=== PATIENT | female | born 1965 | race Caucasian/White ===

== ENCOUNTER → 2024-03-21 06:29 | Day surgery (SDC) | payer MEDICARE, OTHER, SELFPAY | LOC: GI 06:29 | PROVIDERS: ATTENDING PHYSICIAN Internal Medicine Gastroenterology; FAMILY PHYSICIAN Internal Medicine Geriatric Medicine | DX: Z12.11 Encounter for screening for malignant neoplasm of colon (principal); D12.4 Benign neoplasm of descending colon; Q43.8 Other specified congenital malformations of intestine; Z83.719 Family history of colon polyps, unspecified | CPT/HCPCS: 45385; 88305 ==

== ENCOUNTER → 2024-05-20 11:43 | Outpatient (REF) | payer MEDICARE, OTHER, SELFPAY | LOC: RAD 11:43 | PROVIDERS: ATTENDING PHYSICIAN Nurse Practitioner Family; FAMILY PHYSICIAN Internal Medicine Geriatric Medicine | DX: M54.12 Radiculopathy, cervical region (principal); M25.511 Pain in right shoulder | CPT/HCPCS: 72052; 73030 ==

== ENCOUNTER → 2024-08-25 10:11 | Outpatient (REF) | payer MEDICARE, OTHER, SELFPAY | LOC: DHSLP 10:11 | PROVIDERS: ATTENDING PHYSICIAN Internal Medicine Geriatric Medicine | DX: G47.00 Insomnia, unspecified (principal); R09.02 Hypoxemia | CPT/HCPCS: 95810 ==

== ENCOUNTER → 2024-09-29 07:30 | Outpatient (REF) | payer MEDICARE, OTHER, SELFPAY ==
[2024-09-29 09:40] LABS: % Basophils 1.1 % (0-2); % Eosinophils 1.2 % (0-6); % Immature Granulocytes 0.3 % (0-0.5); % Lymphocytes 22.4 % (20.5-51.1); % Monocytes 6.7 % (1.7-9.3); % Neutrophils 68.3 % (42.2-75.2); Absolute Basophils 0.1 10^3/uL (0-0.2); Absolute Eosinophils 0.1 10^3/uL (0-0.7); Absolute Lymphocytes 1.4 10^3/uL (1.2-3.4); Absolute Monocytes 0.4 10^3/uL (0.1-0.6); Absolute Neutrophils 4.4 10^3/uL (1.4-6.5); Hematocrit 46.6 % (37.0-47.0); Hemoglobin 15.5 g/dL (12.0-16.0); Mean Corp Hgb Conc. 33.3 g/dL (33.0-37.0); Mean Corpuscular Hgb 29.1 pg (27.0-31.0); Mean Corpuscular Volume 87.4 fL (81.0-99.0); Nucleated Red Blood Cells % 0 %; Platelet Count 285 10^3/uL (130-400); Red Blood Cell Count 5.33 10^6/uL (4.20-5.40); Red Cell Dist. Width 13.5 % (11.5-14.5); White Blood Cell Count 6.4 10^3/uL (4.8-10.8)
[2024-09-29 10:01] LABS: NT-proBNP 32.8 pg/ml
[2024-09-29 10:37] LABS: Erythrocyte Sed Rate 9 mm/hour (0-20)
[2024-09-29 11:38] LABS: Cortisol, Random 10.1 ug/dl
[2024-09-29 11:54] LABS: Albumin 4.8 g/dl (3.5-5.0); Alkaline Phosphatase 67 U/L (38-126); Blood Urea Nitrogen 18 mg/dl (7-17); Calcium 9.7 mg/dl (8.4-10.2); Carbon Dioxide 27 mmol/L (22-30); Chloride 110 mmol/L (98-107); Glucose 97 mg/dl (70-99); Potassium 4.4 mmol/L (3.5-5.1); Sodium 146 mmol/L (135-145); Total Protein 7.4 g/dl (6.3-8.2); eGFR 58.61
[2024-09-29 11:55] LABS: ALT (SGPT) 29 U/L (0-35); AST (SGOT) 31 U/L (14-36); Creatine Phosphokinase 166 U/L (30-135); Total Bilirubin 0.5 mg/dl (0.2-1.3)
[2024-09-29 15:11] LABS: Prealbumin (Transthyretin) 23.4 mg/dl (17.6-36.0)
[2024-10-02 01:23] LABS: Aldosterone, Serum 15.9 ng/dL; Aldosterone/Renin Activ Ratio 39.8 ratio (<=25.0); Renin Activity Results 0.4 ng/mL/hr
== END ==
LOC: RCS 07:30
PROVIDERS: ATTENDING PHYSICIAN Internal Medicine Geriatric Medicine; REFERRING PHYSICIAN Internal Medicine Critical Care Medicine
DX: E78.2 Mixed hyperlipidemia (principal); M79.10 Myalgia, unspecified site; M54.12 Radiculopathy, cervical region; F32.9 Major depressive disorder, single episode, unspecified; J45.20 Mild intermittent asthma, uncomplicated; K21.9 Gastro-esophageal reflux disease without esophagitis; M19.91 Primary osteoarthritis, unspecified site; Z13.89 Encounter for screening for other disorder; J45.40 Moderate persistent asthma, uncomplicated; R55 Syncope and collapse; J98.4 Other disorders of lung
CPT/HCPCS: 36415; 71046; 80053; 82088; 82533; 82550; 83835; 83880; 84134; 84244; 85025; 85652; 86140; 93225; 93226; 93306

== ENCOUNTER 2024-10-10 09:06 | Emergency (ER) | payer MEDICARE, OTHER, SELFPAY ==
[2024-10-10 09:11] VITALS: BP 123/100
--- NOTE | 2024-10-10 09:31 | ED.GENMED ---
History of Present Illness
General
Chief Complaint: Cold/Flu/URI Symptoms
Source: patient
Exam Limitations: none
Time Seen by Provider: 10/10/24 09:19
History of Present Illness
History of Present Illness:
Patient is a 59-year-old female with past medical history of asthma, previous pneumonia, previous PE provoked by surgery, not currently anticoagulated, obstructive sleep apnea on supplemental oxygen only at night, migraine headaches, PTSI,
depression who presents to the emergency department for evaluation of symptoms that started 3 days ago. Patient reports nasal congestion, rhinorrhea, sore throat, cough which is mostly nonproductive. Patient reports that when she coughs very hard,
she gets lightheaded and dizzy. Patient denies chest pain. Patient reports that sometimes she gets short of breath. Patient denies abdominal pain, nausea, vomiting, recent change in her bowel habits. Patient notes a decreased appetite but
reports she is drinking plenty of fluids. Patient went to urgent care yesterday and had a rapid flu and COVID swab, these tests were negative. She also had a rapid strep which was negative. She reports she had a chest x-ray but was not given the
results. She notes that her vital signs were abnormal, notably her blood pressure was 70/50 and her oxygen was 90%. She was advised to proceed directly to the emergency department however the patient declined stating concerns about how long the
wait would be. Patient reports that she was last on steroids for her breathing about 2 months ago. She reports she has been using her inhalers at home without significant improvement in her symptoms. Patient denies any recent lower extremity
edema. Patient denies any known sick contacts or recent travel. Patient reports she has been intubated in the past but only following a suicide attempt, denies that she has ever been intubated for her asthma or breathing problems.
Past History
Past History
ED Past Medical History: GERD, Psychiatric, Other (Headaches), Other (Pulmonary emboli) and Other (PTSD, multiple suicide attempts, depression, bipolar, chronic low back pain)
ED Past Surgical History: Cholecystectomy, Gynecological (D&C), Tonsilectomy and Other (Uterine ablation)
Social History
Tobacco: Non-smoker
Alcohol: None
Drug: None
Personal: Single
Living: alone
Employment: Employed
Family History
Family History: Other (Noncontributory)
Review of Systems
Review of Systems
All Other Systems: Not applicable
Constitutional: Reports no symptoms
EENT: Reports sore throat and runny nose
Respiratory: Reports cough
Cardiac: Reports no symptoms; Denies chest pain
ABD/GI: Reports no symptoms
: Reports no symptoms
Musculoskeletal: Reports no symptoms
Skin: Reports no symptoms
Neurological: Reports no symptoms
Endocrine: Reports no symptoms
Hematologic/Lymphatic: Reports no symptoms
Psychiatric: Reports no symptoms
Phy Exam
General Physical Exam
General Presentation: well appearing and no apparent distress
General Skin: warm and dry
General Habitus: normal
General Mental: alert
General Hydration: appears well hydrated
ENT Exam
ENT Exam: EOMI, pharynx normal, neck supple and normocephalic
Eye Exam
Eye Exam: PERRL, cornea clear and conjunctiva normal
Cardiovascular Exam
Cardiovascular Exam: regular rate/rhythm, no edema, no murmur and normal peripheral pulses
Pulmonary Exam
Pulmonary Exam: no respiratory distress, no rales, no crackles, no rhonchi, no stridor and other (inspiratory squeak noted over the RLL)
Cough: non productive cough
Gastrointestinal Exam
Gastrointestinal Exam: normal bowel sounds, non tender, soft, no organomegaly, no pulsatile mass and non distended
Neurological Exam
Neurological Exam: alert, oriented x3, no motor deficits and speech normal
Musculoskeletal Exam
Musculoskeletal Exam: full ROM and no edema
Skin Exam
Skin Exam: normal color, warm/dry, no rash and no petechia
Psychiatric Exam
Psychiatric Exam: normal mood/affect
Course
Orders/Labs/Results
Orders:
Orders
10/10/24 09:29
0.9% Sodium Chloride 1000 ml [Nss] 1,000 ml IV BOLUS
Ipratropium/Albuterol Sulfate [Duoneb] 3 ml INH R NOW STA
Prednisone [Deltasone] 50 mg PO NOW STA
10/10/24 09:30
CR Chest - 2 Views Urgent
Comment:
Reason For Exam: cough, shortness of breath
10/10/24 09:51
Complete Blood Count/With Diff Urgent
10/10/24 11:34
Amoxicillin 875 mg/Clav 125 mg [Augmentin 875 mg/125 mg] 1 tablet PO NOW STA
Azithromycin [Zithromax] 500 mg PO NOW STA
Abnormal Lab Results
10/10/24
09:51
WBC 12.7 H 10^3/uL
(4.8-10.8)
Absolute Neuts (auto) 10.3 H 10^3/uL
(1.4-6.5)
Absolute Lymphs (auto) 1.1 L 10^3/uL
(1.2-3.4)
Absolute Monos (auto) 1.1 H 10^3/uL
(0.1-0.6)
Neutrophils % 81.0 H %
(42.2-75.2)
Lymphocytes % 8.8 L %
(20.5-51.1)
10/10/24 09:51
10/10/24 10:38
Vital Signs
Initial and Last Documented VS:
Initial Vital Signs
Temp Pulse Resp BP Pulse Ox
98.8 F 108 16 123/100 95
10/10/24 09:11 10/10/24 09:11 10/10/24 09:11 10/10/24 09:11 10/10/24 09:11
Last Documented Vital Signs
Temp Pulse Resp BP Pulse Ox
98.8 F 110 18 135/54 95
10/10/24 09:11 10/10/24 11:24 10/10/24 11:24 10/10/24 11:24 10/10/24 11:24
*Critical Care Note
Total Time (30-74mins, 75-104mins- exclusive of procedures): Not Applicable
Update Note
Update Note:
59-year-old female with past medical history of asthma, obstructive sleep apnea on oxygen at night, remote history of provoked PE, not currently on anticoagulation, presents to the emergency department for evaluation of worsening URI symptoms
associated with some shortness of breath. On arrival, patient is mildly tachycardic, slightly hypertensive, afebrile. On exam, patient is very well-appearing, she is in no acute distress, she has no evidence of increased work of breathing, she has
a slight inspiratory squeak. Will obtain basic labs along with a chest x-ray. Will provide the patient with IV fluids as she reports decreased oral intake as well as a DuoNeb and reassess.
1133AM: Patient with mild leukocytosis to 12.7, chest x-ray demonstrates evidence of atelectasis versus pneumonia. Given the patient's symptomology, will cover for pneumonia. Patient's oxygenation noted to briefly drop to the low 90s. Patient
does use supplemental oxygen at night. She has the ability to obtain a pulse oximeter and monitor her oxygenation closely at home and to return if it worsens. Patient is anxious for discharge to home. I feel that the patient is reliable and is
safe for discharge with oral antibiotics as an outpatient along with strict return precautions. Patient expressed understanding the plan and agreed.
ED Attending Note
-
Portions of this chart may have been created with voice recognition software.� Occasional wrong word or��sound alike� substitutions may have occurred due to the inherent limitations of voice recognition software.
Discharge Plan
Departure
Patient Disposition: Home (Routine Discharge)
Date of Disposition: 10/10/24
Time of Disposition: 11:35
Patient with high blood pressure during this ER visit?: Yes
Condition: Good
Covid-19: Negative COVID-19
Discharge Problem:
Pneumonia
Instructions: Pneumonia in adults - Discharge instructions
Prescriptions:
New
amoxicillin-pot clavulanate 875-125 mg tablet
1 tab PO BID 7 Days Qty: 14 0RF
azithromycin 250 mg tablet
250 mg PO DAILY 4 Days Qty: 4 0RF
prednisone 10 mg tablet
40 mg PO DAILY 4 Days Qty: 16 0RF
No Action
ropinirole 1 MG tablet
1 mg PO HS 0RF
cyanocobalamin (vitamin B-12) 1,000 MCG tablet
1,000 mcg PO DAILY 0RF
temazepam 15 MG capsule
30 mg PO HSPRN PRN (Reason: insomnia) 0RF
sumatriptan 5 MG spray,non-aerosol
5 mg NS PRN
ergocalciferol (vitamin D2) 50,000 UNITS capsule
50,000 units PO WEEKLY Qty: 30 3RF
melatonin 5 MG tablet
5 mg PO HS Qty: 30 0RF
ketamine 100 mg/mL Solution
150 mg IV MONTHLY
trazodone 100 MG tablet
500 mg PO HS
ibuprofen 600 mg tablet
600 mg PO Q6H PRN (Reason: fever or pain) Qty: 20 0RF
hydrocodone-acetaminophen 5-325 mg tablet
1 tab PO Q8H PRN (Reason: pain) Qty: 14 0RF
valacyclovir [Valtrex] 1 gram tablet
1,000 mg PO Q8H 7 Days Qty: 21 0RF
Referrals:
Gordy Huber MD [Family Provider, Internal Medicine] - Follow up in 2-3 days
Stand Alone Forms: Return to Work
Activity Restrictions/Additional Instructions:
You were seen in the emergency department for evaluation of cough and shortness of breath. While you were in the emergency department your blood work showed that you had a slightly elevated white blood cell count which is an indication of
infection. Your chest x-ray was concerning for possible pneumonia. You are being treated with a course of 2 antibiotics. Please make sure that you take all of them exactly as directed, even if you start to feel better. You are also being given a
short course of prednisone to help with your breathing. You may continue to use your albuterol inhaler if needed. Please obtain a pulse oximeter and monitor your oxygenation levels closely. If they persistently drop below 90% you should return to
the emergency department for reevaluation. In the meantime, please try to get plenty of rest and drink plenty of fluids. Please return to the emergency department for increased shortness of breath or difficulty breathing, severe chest pain,
persistent vomiting, if you pass out or feel you are going to pass out, or for any other worsening or concerning symptoms.
Interventions
Interventions:
*Risk Screen - Suicide Last Done: 10/10/24 09:11
*General Assessment Last Done: 10/10/24 09:48
*Neglect/Abuse Screening Last Done: 10/10/24 09:11
*ED- Fall Risk Assessment Last Done: 10/10/24 09:48
*ED COVID-19 Vaccine History Last Done: 10/10/24 09:48
*Nursing Disposition Last Done: 10/10/24 11:54
ED- Pulmonary Assessment Last Done: 10/10/24 09:49
Discharge Date and Time
Discharge Date/Time: 10/10/24 11:54
Print Language: TAJIK
[2024-10-10] MEDS: DUONEB 3 ML INH (09:58)
[2024-10-10] MEDS: NSS 1000 IV (09:58)
[2024-10-10] MEDS: DELTASONE 50 MG PO (09:58)
[2024-10-10 10:08] LABS: % Basophils 0.6 % (0-2); % Eosinophils 0.5 % (0-6); % Immature Granulocytes 0.3 % (0-0.5); % Lymphocytes 8.8 % (20.5-51.1); % Monocytes 8.8 % (1.7-9.3); Absolute Basophils 0.1 10^3/uL (0-0.2); Absolute Eosinophils 0.1 10^3/uL (0-0.7); Absolute Lymphocytes 1.1 10^3/uL (1.2-3.4); Absolute Monocytes 1.1 10^3/uL (0.1-0.6); Absolute Neutrophils 10.3 10^3/uL (1.4-6.5); Hematocrit 39.9 % (37.0-47.0); Hemoglobin 13.7 g/dL (12.0-16.0); Mean Corp Hgb Conc. 34.3 g/dL (33.0-37.0); Mean Corpuscular Hgb 29.5 pg (27.0-31.0); Mean Corpuscular Volume 85.8 fL (81.0-99.0); Mean Platelet Volume 10.3 fL (7.4-10.4); Nucleated Red Blood Cells % 0 %; Platelet Count 183 10^3/uL (130-400); Red Blood Cell Count 4.65 10^6/uL (4.20-5.40); Red Cell Dist. Width 13.5 % (11.5-14.5); White Blood Cell Count 12.7 10^3/uL (4.8-10.8)
[2024-10-10 11:24] VITALS: BP 135/54
[2024-10-10] MEDS: ZITHROMAX 500 MG PO (11:50)
[2024-10-10] MEDS: AUGMENTIN 875 MG/125 MG 1 TABLET PO (11:50)
== END 2024-10-10 11:54 | disposition home or self-care (01) ==
LOC: EMR 09:06
PROVIDERS: Physician Assistant Medical; EMERGENCY PHYSICIAN Student in an Organized Health Care Education/Training Program; FAMILY PHYSICIAN Internal Medicine Geriatric Medicine
DX: J18.9 Pneumonia, unspecified organism (principal); J45.909 Unspecified asthma, uncomplicated; Z86.711 Personal history of pulmonary embolism; G47.33 Obstructive sleep apnea (adult) (pediatric); Z99.81 Dependence on supplemental oxygen
CPT/HCPCS: 94640; 96360; 99284; 71046; 85025

== ENCOUNTER 2024-10-11 22:05 | Inpatient (IN) | payer MEDICARE, OTHER, SELFPAY ==
[2024-10-11] VITALS (16 sets, daily range): BP systolic 113–139; BP diastolic 61–83; BMI 30.3
--- NOTE | 2024-10-11 17:11 | ED.GENMED ---
History of Present Illness
General
Chief Complaint: Breathing Problem
Source: patient
Exam Limitations: none
Time Seen by Provider: 10/11/24 16:59
History of Present Illness
History of Present Illness:
Note:
CHIEF COMPLAINT(S)
Shortness of breath and cough.
HISTORY OF PRESENT ILLNESS
The patient is a 59-year-old female who presents with worsening shortness of breath and cough, which began on Thursday with an initial sore throat. She has been taking antibiotics as part of her treatment. At home, her oxygen saturation was measured
between 85% and 90%. She reports feeling very warm, possibly febrile, and mentions experiencing a pounding headache. Additionally, she has had a little vomiting but denies abdominal pain. She has a history of a blood clot following surgery, but no
recent surgeries have been performed. Respiratory assessments indicate requirement for additional oxygen support and nebulizer treatments upon arrival. A chest X-ray in the ED yesterday suggested possible pneumonia. She is on oral prednisone as part
of her current treatment regimen.
EXTERNAL RECORDS REVIEWED
An X-ray taken yesterday here showed potential signs of pneumonia.
CHRONIC MEDICAL CONDITIONS SIGNIFICANTLY AFFECTING CARE
History of blood clots.
ALLERGIES
Droperiodol, haldol
REVIEW OF SYSTEMS
- Respiratory: Shortness of breath, history of cough, no history of asthma.
- Gastrointestinal: Occasional vomiting, no abdominal pain.
- Neurological: Pounding headache.
- Vascular: No leg swelling, history of postoperative blood clot.
PHYSICAL EXAM
- Cardiovascular: Tachycardic
- Respiratory: Expiratory wheeze
Ext: no cyanosis
- General: Patient appears warm to touch,
Nursing notes reviewed and vital signs reviewed.
PROBLEM LIST
- Acute: Shortness of breath, potential pneumonia, hypoxia, headache.
- Chronic: History of blood clots post-surgery.
PLAN
- Initiate IV treatment with fluids and continue nebulizer treatments.
- Perform chest X-ray to reassess for pneumonia or other changes.
- Consider hospital admission for further management due to worsening condition despite outpatient treatment.
- Obtain blood cultures and further evaluate the need for additional antibiotics.
- Continue monitoring oxygen requirements and adjust treatment accordingly.
DIFFERENTIAL DIAGNOSIS
The Differential Diagnosis includes, in no particular order and is not limited to:
1. Pneumonia
2. Chronic obstructive pulmonary disease exacerbation
3. Pulmonary embolism
4. Acute bronchitis
5. Heart failure
Past History
Past History
ED Past Medical History: GERD, Psychiatric, Other (Headaches), Other (Pulmonary emboli) and Other (PTSD, multiple suicide attempts, depression, bipolar, chronic low back pain)
ED Past Surgical History: Cholecystectomy, Gynecological (D&C), Tonsilectomy and Other (Uterine ablation)
Social History
Tobacco: Non-smoker
Alcohol: None
Drug: None
Personal: Single
Living: alone
Employment: Employed
Family History
Family History: Other (Noncontributory)
Phy Exam
Physical Exam
Physical Exam:
see above
Scores
Heart Failure Risk
Heart Failure Risk Score: Not Applicable
Sepsis
Sepsis Screening
Sepsis Assessment: Sepsis Ruled Out
Sepsis Screen
Sepsis Screen: Sepsis Ruled Out
Date: 10/14/24
Time: 15:03
Course
Orders/Labs/Results
Orders:
Orders
10/11/24 Dinner
Regular
At Your Request: Full Participation
10/11/24 16:54
EKG [Electrocardiogram (*1)] Urgent
Reason for Study: Shortness of Breath
EKG- Treatment ONCE
10/11/24 17:07
CR Chest Portable - 1 View Urgent
Comment:
Reason For Exam: sob
Reason Study Needs to be Portable: Patient Unstable
10/11/24 17:20
Complete Blood Count/With Diff Urgent
Comprehensive Metabolic Panel Urgent
Lactic Acid Q4H
Comment: CANCEL 2nd LACTIC ACID IF 1st LACTIC ACID IS LESS THAN 2
TSH Urgent
Comment: ADD ON
Blood Culture Q30M
AMEE Source: Blood/Venous
Specimen Description:
Blood Culture Q30M
AMEE Source: Blood/Venous
Specimen Description:
10/11/24 17:54
Dexamethasone Sod Phosphate [Decadron] 10 mg IV NOW STA
10/11/24 17:55
CT Chest PE Study Urgent
Comment:
Reason For Exam: sob
Ipratropium/Albuterol Sulfate [Duoneb] 3 ml INH R NOW STA
10/11/24 19:18
Acetaminophen [Tylenol] 1,000 mg PO NOW STA
10/11/24 19:49
Ibuprofen [Motrin] 600 mg PO NOW STA
10/11/24 19:57
Azithromycin 500 mg/250 ml [Zithromax Infusion] 500 mg in 250 ml IV NOW
CefTRIAXone [Rocephin] 1,000 mg IV NOW STA
10/11/24 21:11
Admit/Transfer Patient As Directed
Co-Sign Provider:
Level of Care: Inpatient admission
Assign to:: Medical/Surgical
Physician / Group: Siddharthsdkalina
Diagnosis: Pneumonia
Reason for Hospitalization: pneumonia with sepsis
Expected length of stay greater than two midnights?: Yes
ELOS- Estimated Length of Stay in days: 2
I certify the patient meets the requirements for IP care: Yes
PRN Pain Medication Management As Directed
May give lesser potent ordered pain med per pt: Yes
preference::
Protocol:: Medication orders for pain may be administered in a
manner that supports deferring to patient preference
when the pt is:
- Requesting an ordered lesser potent pain medication.
Least to most potent pain medications are defined
as: acetaminophen < NSAID < tramadol < opioids
(morphine, oxycodone, hydromorphone).
- Requesting a lesser dose of the same medication IF
ORDERED.
- Requesting a less intrusive route of administration
if both routes are prescribed by the provider (PO <
IV).
10/11/24 21:12
Code Status As Directed
Resuscitation Status: Full Code
10/11/24 22:00
Flush (0.9% Sodium Chloride) [Flush (Nss)] See Dose Instructions IV PER PROTOCOL
10/11/24 22:06
Acetaminophen [Tylenol] 650 mg PO Q4HPRN PRN
Albuterol Nebs [Ventolin Nebules] 2.5 mg INH R Q3HPRN PRN
Guaifenesin/Dextromethorphan [Robitussin Dm] 5 ml PO Q6HPRN PRN
Mag Hydrox/Al Hydrox/Simeth [Maalox] 15 ml PO QIDPRN PRN
Magnesium Hydroxide [Milk of Magnesia] 30 ml PO Q4HPRN PRN
Temazepam [Restoril] 30 mg PO HSPRN PRN insomnia
Trazodone [Desyrel] 400 mg PO HS
10/11/24 22:06
Legionella Urinary Antigen Routine
AMEE Source: Urine
Specimen Description:
Respiratory Culture/Gram Stain Urgent
AMEE Source: Sputum
Specimen Description:
Date Specimen was Collected: 10/12/24
Time Specimen was Collected: 13:03
Strep pneumoniae Antigen Routine
AMEE Source: Urine
Specimen Description:
Activity As Directed
Activity Level: Out of Bed-Early Mobility
Intake/ Output As Directed
Frequency: Per unit guidelines
Vital Signs As Directed
Frequency: Per unit guidelines
Weight As Directed
Frequency: Once
Comment: on admission
Pulse Ox/cont/shift [RESP] Routine
Quantity: 1
Special Instructions: notify provider if SPO2 < 91%
Rx Incentive Spirometry [RESP] Routine
Frequency: q1h while awake
DX Deep Vein Thrombosis Video Routine
10/11/24 22:23
MRSA Screen Routine
AMEE Source: Nose
Specimen Description:
10/12/24 05:44
Basic Metabolic Panel IN AM
Complete Blood Count/No Diff IN AM
10/12/24 08:00
Azithromycin [Zithromax] 500 mg PO DAILY
Fluticasone/Salmeterol 45/21 [Advair Hfa 45/21 Mcg Inhaler] 2 puff INH R BID
Guaifenesin [Mucinex] 600 mg PO Q12
Ipratropium/Albuterol Sulfate [Duoneb] 3 ml INH R QID
Prednisone [Deltasone] 40 mg PO DAILY
10/12/24 18:00
Enoxaparin Sodium [Lovenox] 40 mg SC QPM
10/12/24 20:00
CefTRIAXone [Rocephin] 2,000 mg IV Q24H
Abnormal Lab Results
10/11/24
17:20
WBC 12.3 H 10^3/uL
(4.8-10.8)
MPV 10.5 H fL
(7.4-10.4)
Abs Immat Gran (auto) 0.1 H 10^3/uL
(0-0.05)
Absolute Neuts (auto) 10.4 H 10^3/uL
(1.4-6.5)
Absolute Lymphs (auto) 0.7 L 10^3/uL
(1.2-3.4)
Absolute Monos (auto) 1.1 H 10^3/uL
(0.1-0.6)
Neutrophils % 83.9 H %
(42.2-75.2)
Lymphocytes % 5.9 L %
(20.5-51.1)
Chloride 108 H mmol/L
(98-107)
Glucose 165 H mg/dl
(70-99)
Total Protein 5.9 L g/dl
(6.3-8.2)
10/11/24 17:20
10/11/24 17:20
Vital Signs
Initial and Last Documented VS:
Initial Vital Signs
Pulse Resp BP Pulse Ox
123 40 139/78 91
10/11/24 16:51 10/11/24 16:51 10/11/24 16:51 10/11/24 16:51
Last Documented Vital Signs
Temp Pulse Resp BP Pulse Ox
97.6 F 109 22 170/93 92
10/14/24 11:20 10/14/24 13:16 10/14/24 13:16 10/14/24 10:00 10/14/24 13:37
*Critical Care Note
Total Time (30-74mins, 75-104mins- exclusive of procedures): Not Applicable
Update Note
Update Note:
Chest x-ray shows left basilar pneumonia. Patient became more hypoxic and requiring more oxygen throughout her stay after the nebulizer. She was persistently tachycardic. Given this is PE study was ordered which is pending. I suspect worsening
pneumonia now with hypoxia requiring 4 L of oxygen. Will require admission
ED Attending Note
-
Portions of this chart may have been created with voice recognition software.� Occasional wrong word or��sound alike� substitutions may have occurred due to the inherent limitations of voice recognition software.
Discharge Plan
Departure
Patient Disposition: Admit
Date of Disposition: 10/11/24
Time of Disposition: 19:58
Presentation/result/management discussed w/ accepting MD/DO: Hospitalist
Discharge Problem:
Pneumonia
Interventions
Interventions:
*Risk Screen - Suicide Last Done: 10/11/24 22:17
*General Assessment Last Done: 10/11/24 16:53
*Neglect/Abuse Screening Last Done: 10/11/24 16:53
*ED- Fall Risk Assessment Last Done: 10/11/24 22:07
*ED COVID-19 Vaccine History Last Done: 10/11/24 22:17
*Nursing Disposition Last Done: 10/11/24 22:07
ED- Cardiac Assessment Last Done: 10/11/24 17:37
ED- Pulmonary Assessment Last Done: 10/11/24 17:34
Discharge Date and Time
Discharge Date/Time: 10/11/24 22:08
[2024-10-11 17:32] LABS: % Basophils 0.6 % (0-2); % Eosinophils 0.1 % (0-6); % Immature Granulocytes 0.4 % (0-0.5); % Lymphocytes 5.9 % (20.5-51.1); % Monocytes 9.1 % (1.7-9.3); % Neutrophils 83.9 % (42.2-75.2); Absolute Basophils 0.1 10^3/uL (0-0.2); Absolute Immature Granulocytes 0.1 10^3/uL (0-0.05); Absolute Lymphocytes 0.7 10^3/uL (1.2-3.4); Absolute Monocytes 1.1 10^3/uL (0.1-0.6); Absolute Neutrophils 10.4 10^3/uL (1.4-6.5); Hematocrit 38.9 % (37.0-47.0); Hemoglobin 13.4 g/dL (12.0-16.0); Mean Corp Hgb Conc. 34.4 g/dL (33.0-37.0); Mean Corpuscular Hgb 29.4 pg (27.0-31.0); Mean Corpuscular Volume 85.3 fL (81.0-99.0); Mean Platelet Volume 10.5 fL (7.4-10.4); Nucleated Red Blood Cells % 0 %; Platelet Count 202 10^3/uL (130-400); Red Blood Cell Count 4.56 10^6/uL (4.20-5.40); Red Cell Dist. Width 13.5 % (11.5-14.5); White Blood Cell Count 12.3 10^3/uL (4.8-10.8)
[2024-10-11 17:55] LABS: ALT (SGPT) 30 U/L (0-35); AST (SGOT) 35 U/L (14-36); Albumin 3.8 g/dl (3.5-5.0); Alkaline Phosphatase 83 U/L (38-126); Blood Urea Nitrogen 15 mg/dl (7-17); Calcium 8.9 mg/dl (8.4-10.2); Carbon Dioxide 22 mmol/L (22-30); Chloride 108 mmol/L (98-107); Glucose 165 mg/dl (70-99); Potassium 3.8 mmol/L (3.5-5.1); Sodium 137 mmol/L (135-145); Total Bilirubin 0.8 mg/dl (0.2-1.3); Total Protein 5.9 g/dl (6.3-8.2); eGFR > 60.00
[2024-10-11] MEDS: DUONEB 3 ML INH (17:58)
[2024-10-11] MEDS: DECADRON 10 MG IV (17:58)
[2024-10-11 18:00] LABS: Lactic Acid 1.4 mmol/L (0.7-2.0)
[2024-10-11] MEDS: MOTRIN 600 MG PO (19:53)
[2024-10-11] MEDS: ROCEPHIN 1000 MG IV (20:15)
[2024-10-11] MEDS: ZITHROMAX INFUSION 250 IV (20:15)
--- NOTE | 2024-10-11 20:52 | HPS.HSE ---
Family Physician
-
Family Physician: Gordy Huber
Chief Complaint
-
Shortness of breath
History of Present Illness
Patient is a 59-year-old with past medical history of mild asthma, sleep apnea, GERD, anxiety/depression presenting to the emergency department with worsening shortness of breath and cough.
Patient developed sore throat about 5 days ago. She was seen in the emergency department for wheezing and coughing about 2 days ago and was prescribed Augmentin, azithromycin and prednisone. She was also asked to merchandise pickup/receiving associate a pulse oximeter.
Overnight the patient had persistent cough. She reports that is nonproductive. When she checked that pulse oximetry it was recorded in the low of 85% with a high of 90%. She feels short of breath. She denies any fevers or chills.
She reports dyspnea on exertion. She denies any chest pain, calf swelling or tenderness. She denies any recent travels. She has no known sick contacts.
In the emergency department today she was afebrile with a temp of 98.5. Blood pressure was 120/68 and pulse rate of 126. Oxygen saturation was 91% on room air.
White count was 12.3, normal platelets and hemoglobin. Electrolytes were normal. BUN/creatinine were normal.
Her ECG showed sinus tachycardia at a rate of 112 but otherwise nonischemic.
Chest x-ray shows no acute interval changes with suggestion of left basilar atelectasis and/or pneumonia.
Patient had a CT PE study which was negative for PE. He however did show pneumonia consolidation in the medial aspect of the superior segment of the right lower lobe.
Medical History
Past Medical History
Past Medical History: Reports Other
Additional Past Medical History:
Depression
Fibromyalgia
Irritable bowel syndrome
Migraine
GERD
Sleep apnea
PTSD
Asthma
Complex regional pain syndrome
Past Surgical History: Reports Other
Additional Past Surgical History:
Bilateral tubal ligation
Breast reconstruction
Cholecystectomy
Endometrial ablation
ERCP with sphincterectomy
Hemorrhoidectomy
Expiratory laparotomy
Tonsillectomy
RT C7-T1 ILESI NO SED 06/07/24
RT C7-T1 ILESI NO SED 07/11/24
Social History
Tobacco: Non-smoker
Alcohol: None
Drug: None
Family History
Family History: Not pertinent
Allergies / Home Medications
Allergies reflects when Allergies were last updated in [facility].
Home Medications with original date entered in [facility]
Allergy/Medication List:
Allergies
Allergy/AdvReac Type Severity Reaction Status Date / Time
droperidol AdvReac Tardive Verified 10/11/24 18:41
dyskenesia
haloperidol (From Haldol) AdvReac Tardive Verified 10/11/24 18:41
dyskenesia
bee stings Allergy Swelling Uncoded 10/10/24 09:13
Home Medications
Gabapentin 9 with milligram tablet, 900 mg p.o. at bedtime
Trazodone for 100 mg tablet, 100 mg p.o. at bedtime
Duloxetine 30 mg capsule, 30 mg p.o. daily
temazepam 15 mg capsule 30 mg (2 x 15 mg) PO HSPRN PRN insomnia 11/12/17
prednisone 10 mg tablet 40 mg (4 x 10 mg) PO DAILY 4 days #16 tabs 10/10/24
Review of Systems
-
History Source: Patient
Constitutional: Reports No Symptoms
EENT: Reports No Symptoms
Respiratory: Reports Cough and Trouble Breathing
Cardiac: Reports No Symptoms
Abdomen/GI: Reports No Symptoms
: Reports No Symptoms
Musculoskeletal: Reports No Symptoms
Skin: Reports No Symptoms
Neurological: Reports No Symptoms
Endocrine: Reports No Symptoms
Hematologic/Lymphatic: Reports No Symptoms
Psych: Reports No Symptoms
Physical Exam
Vital Signs
Vital Signs
Temp Pulse Resp BP Pulse Ox
98.5 F 126 16 119/68 91
10/11/24 17:00 10/11/24 18:15 10/11/24 18:15 10/11/24 18:00 10/11/24 18:15
Physical Exam
General: Well Developed, Well Nourished and No Apparent Distress
HEENT: NormoCephalic, Moist mucous membranes and Atraumatic
Respiratory: Clear, Wheezes (Coarse wheezes most notable in the right lower lobe, very minimal to none on the left side.) and Crackles (Right lower lobe)
Cardiac: S1/S2 and Tachycardia; No Murmur or Rub
GI: Soft, Non Tender, Non Distended and Normal Bowel Sounds; No Organomegaly
Rectal: Deferred by Provider
Musculoskeletal: No Clubbing, No Cyanosis and No Edema
Skin: No Rash
Neuro: Nonfocal/grossly intact
Hematologic/Lymphatic: No Lymphadenopathy
Laboratory Results
-
10/11/24 17:20
10/11/24 17:20
Laboratory Results
Lactic Acid 1.4 mmol/L (0.7-2.0) 10/11/24 17:20
Total Bilirubin 0.8 mg/dl (0.2-1.3) 10/11/24 17:20
AST 35 U/L (14-36) 10/11/24 17:20
ALT 30 U/L (0-35) 10/11/24 17:20
Alkaline Phosphatase 83 U/L (38-126) 10/11/24 17:20
Data Reviewed
-
Diagnostic Radiology: Image Personally Visualized and interpreted and Report Reviewed by me
CT Scan: Report Reviewed by me
Medical Tests (Nuc Med, Echo, EKG etc): Image Personally Visualized and interpreted
Lab Data: Labs Reviewed by me
Old Records: Reviewed
Impression/Plan
-
IMPRESSION:
59-year-old female with past medical history of mild intermittent asthma, depression/anxiety presenting to the emergency department with cough shortness of breath and hypoxia. Had a CT scan which showed right lower lobe pneumonia consolidation.
She is hypoxic to 85% on room air. She is tachycardic. She is afebrile and hemodynamically stable at this time. Leukocytosis to 12,000. Sepsis from pneumonia.
PLAN:
Pneumonia with sepsis and hypoxia. Mild asthma exacerbation
- admit to med/surg
- blood cultures
- non-productive sputum
- legionella and pneumococcal urinary ag
- IV ceftriaxone/Azithromcyin
- continue prednisone 40mg po daily
- supportive measures with NEBS RTC and prn albuterol
- continue patient's home Wixela
- incentive spirometry
- keep sat > 93%
Depression/Anxiety
- duloxetine 30 hs
- [id number] hs
- continue gabapentin 900 hs
- trazodone 400 hs
DVT PPX - lovenox sq
Code status - Full Code
[2024-10-11] MEDS: RESTORIL 30 MG PO (22:32)
[2024-10-11] MEDS: DESYREL 400 MG PO (22:33)
[2024-10-11] MEDS: ROBITUSSIN DM 5 ML PO (22:33)
[2024-10-12 06:53] LABS: Hematocrit 40.2 % (37.0-47.0); Hemoglobin 13.8 g/dL (12.0-16.0); Mean Corp Hgb Conc. 34.3 g/dL (33.0-37.0); Mean Corpuscular Hgb 29.4 pg (27.0-31.0); Mean Corpuscular Volume 85.5 fL (81.0-99.0); Mean Platelet Volume 10.8 fL (7.4-10.4); Platelet Count 235 10^3/uL (130-400); Red Cell Dist. Width 13.7 % (11.5-14.5); White Blood Cell Count 14.5 10^3/uL (4.8-10.8)
[2024-10-12 07:09] LABS: Blood Urea Nitrogen 15 mg/dl (7-17); Calcium 9.6 mg/dl (8.4-10.2); Carbon Dioxide 22 mmol/L (22-30); Chloride 112 mmol/L (98-107); Estimated Creatinine Clearance 94 ml/min; Glucose 139 mg/dl (70-99); Potassium 3.8 mmol/L (3.5-5.1); Sodium 144 mmol/L (135-145); eGFR > 60.00
[2024-10-12] MEDS: DUONEB 3 ML INH ×3 (07:25→15:27)
[2024-10-12] MEDS: ADVAIR HFA 45/21 MCG INHALER 2 PUFF INH ×2 (07:25→20:04)
[2024-10-12] MEDS: ZITHROMAX 500 MG PO (07:39)
[2024-10-12] MEDS: DELTASONE 40 MG PO (07:39)
[2024-10-12] MEDS: MUCINEX 600 MG PO ×2 (07:39→19:39)
[2024-10-12 07:52] VITALS: BP 125/72
[2024-10-12] MEDS: ROBITUSSIN DM 5 ML PO (08:00)
[2024-10-12] MEDS: TYLENOL 650 MG PO (08:02)
--- NOTE | 2024-10-12 09:47 | W.PN.HOSP.TC ---
Today's Communication/Plan
-
see plan
Assessment / Plan
Assessment / Plan
IMPRESSION:
59-year-old female with past medical history of mild intermittent asthma, depression/anxiety presenting to the emergency department with cough shortness of breath and hypoxia. Had a CT scan which showed right lower lobe pneumonia consolidation.
She is hypoxic to 85% on room air. She is tachycardic. She is afebrile and hemodynamically stable at this time. Leukocytosis to 12,000. Sepsis from pneumonia.
PLAN:
Pneumonia with sepsis and hypoxia. Mild asthma exacerbation
- admit to med/surg
- blood cultures
- non-productive sputum
-covid and flu tested at urgent care - negative
- legionella and pneumococcal urinary ag
- IV ceftriaxone/Azithromcyin
- continue prednisone 40mg po daily
- supportive measures with NEBS RTC and prn albuterol
- continue patient's home Wixela
- incentive spirometry
- keep sat > 93%
Depression/Anxiety
- duloxetine 30 daily
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
awaiting med rec
DVT PPX - lovenox sq
Code status - Full Code
Anticipated Discharge: 24 - 48 hours
Subjective/Interval History
-
Date of Service: October 12, 2024
+ cough, intermittently productive
feels fatigued
she only took a couple of doses oral antibiotics prior to admission
Objective Data
-
Labs:
Laboratory Results
10/12/24
05:44
WBC 14.5 H
Hgb 13.8
Hct 40.2
Plt Count 235
Sodium 144
Potassium 3.8
Chloride 112 H
Carbon Dioxide 22
BUN 15
Creatinine 0.7
Glucose 139 H
Calcium 9.6
Vital Signs:
Vital Signs
Temp Pulse Resp BP Pulse Ox
98.5 F 87 24 125/72 90
10/12/24 07:52 10/12/24 07:52 10/12/24 07:52 10/12/24 07:52 10/12/24 07:52
I&O
10/11/24 10/12/24 10/13/24
06:59 06:59 06:59
Intake Total 480 / 480
Output Total 350 / 350
Balance 130 / 130
Review of Systems
-
History Source: Patient
All other systems: Reviewed and negative
Physical Exam
-
General: No Apparent Distress and Other (appears fatigued)
HEENT: PERRLA
Respiratory: Wheezes (mild end expiratory )
Cardiac: Regular Rhythm and S1/S2
GI: Soft and Nontender
Musculoskeletal: No Edema
Skin: Warm and Dry; Negative Rash
Neuro: AO x 3
Psych: Calm
Data Reviewed
-
Diagnostic Radiology: Report Reviewed by me
Labs: Labs Reviewed by me
[2024-10-12] MEDS: CYMBALTA DELAYED RELEASE 30 MG PO (11:49)
[2024-10-12] MEDS: NEURONTIN 300 MG PO ×3 (11:49→19:39)
[2024-10-12] MEDS: PROTONIX 40 MG PO (11:50)
[2024-10-12] MEDS: VISBIOME 1 CAP PO (11:50)
[2024-10-12] MEDS: ROBITUSSIN 200 MG PO (13:16)
[2024-10-12] MEDS: MOTRIN 400 MG PO ×2 (13:16→21:29)
[2024-10-12 14:35] VITALS: BP 137/91
[2024-10-12] MEDS: NSS 1000 IV ×2 (15:39→16:47)
[2024-10-12] MEDS: KCL 40 MEQ PO (16:05)
--- NOTE | 2024-10-12 16:08 | W.PN.UPDATE ---
Addendum entered and electronically signed by Lana Cardenas MD 10/12/24 16:46:
1st EKG with prolonged Qtc, repeated when patient in afib and Qtc 416.
-will stop Azithro; hold Trazodone for now
-patient will receive her Temazepam
-if patient restless tonight without Trazodone, overnight provider can order extra 0.5mg ativan
Original Note:
Update Note
Progress Note Update
patient with what looked like sinus tach/ SVT this afternoon then development of atrial fibrillation. She feels symptomatic with palpitations. CTA PE yesterday test negative.
She had a recent Halter for outpatient resting HR 117; with reading showing likely aflutter. HR ranging from 110's-180's. BP stable 160's. She had a recent TTE 09/29/24, results below.
TTE 09/29/24
CONCLUSIONS
Normal biventricular size and systolic function without regional wall motion
abnormality. Estimated LVEF 60-65%.
No significant valve disease.
Small pericardial effusion without evidence of hemodynamic compromise.
Compared to 03/12/23: no significant change.
-IV Dilt 10mg x 1, start IV Diltiazem gtt
-CHADS2-Vasc score = 1; not starting AC now but will need if decision for cardioversion.
-Cardiology consulted
-TSH added on from yesterday's labs pre-steroids.
Total Critical Care Time 45 minutes. I was immediately available to the patient and staff. I personally examined, reviewed labs, diagnostic images/reports, interpretations, treatment plans, discussed patient care with other providers and family
or caregivers (if patient is unable to make decisions), entered orders as appropriate and documented the medical record.
--- NOTE | 2024-10-12 16:09 | PTCARENOTE ---
upon taking vitals this RN noted pt to be tachy. pt placed on tele monitor. MD Cardenas made aware. IVF Bolus initiated, ekg obtained, meds administered per order, labs resulting per add on orders. pt remains fever free. remains on 4L NC sating
94%. denies chest pain/sob while at rest. MD Cardenas just arrived to bedside to assess pt. pt remains aaox3. plan of care continues to be followed.
[2024-10-12 16:24] LABS: Magnesium 2.1 mg/dl (1.6-2.3)
[2024-10-12] MEDS: CARDIZEM 10 MG IV (16:26)
[2024-10-12 16:30] VITALS: BP 165/84
[2024-10-12] MEDS: CARDIZEM 125 IV (16:35)
[2024-10-12] MEDS: IMITREX 6 MG SC ×2 (16:39→22:36)
--- NOTE | 2024-10-12 16:46 | CON.CAR ---
Addendum entered and electronically signed by Hung Castañeda DO 10/13/24 11:05:
I saw and examined the patient at 4:45PM 10/12/2024
The Design Technology Teacher's note was reviewed and I agree with the note.
Comment:
Plan:
Eleonora is 59 yo female admitted with PNA and found to be in rapid atrial flutter, symptomatic.
Start IV Cardizem
Start Eliquis
Discussed that we would pursue a rate control strategy for now as she is being treated for PNA
Eventual rhythm control therapy once improved from PNA, likely outpt. Eventual discussion of ablation.
Check echo
Discussed with primary service.
Original Note:
Consultation
Consultation Request
Date/Time Consultation Requested: 10/12/2024
Date/Time Consultation Performed: 10/12/2024
Requesting Provider: Dr. Cardenas
Performing Provider: Yomaira Nagy PA-C for Dr. Castañeda
Reason for Consultation: Palpitations and atrial flutter
Medical History
-
Chief Complaint: SOB
Past Medical History
Past Medical History: Other (In HPI)
Past Surgical History: Cholecystectomy and Gynecological (Tubal ligation)
Social History
Tobacco: Non-Smoker
Alcohol: None
Drug: None
Personal: Single
Living: Alone
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
Family History
Family History: Hypertension and Other (CHF in mother. CVA in father)
Allergies / Home Medications
Allergy/AdvReac Type Severity Reaction Status Date / Time
droperidol AdvReac Tardive Verified 10/11/24 18:41
dyskenesia
haloperidol (From Haldol) AdvReac Tardive Verified 10/11/24 18:41
dyskenesia
bee stings Allergy Swelling Uncoded 10/10/24 09:13
�Medication �Instructions �Recorded �Confirmed �Type
cyanocobalamin (vitamin B-12) 1,000 mcg PO DAILY 11/12/17 10/12/24 Rx
1,000 mcg tablet
ketamine 100 mg/mL injection 150 mg IV MONTHLY Depression 04/16/22 10/12/24 History
solution
trazodone 100 mg tablet 400 mg PO HS Sleep 04/16/22 10/12/24 History
albuterol sulfate 90 mcg/actuation 2 puff inhalation Q6H PRN 10/12/24 10/12/24 History
aerosol inhaler shortness of breath
carisoprodol 350 mg tablet 350 mg PO BIDPRN PRN muscle spasm 10/12/24 10/12/24 History
cholecalciferol (vitamin D3) 25 25 mcg PO DAILY 10/12/24 10/12/24 History
mcg (1,000 unit) tablet (Vitamin
D3)
dextroamphetamine-amphetamine ER 20 mg PO DAILYPRN PRN WORK 10/12/24 10/12/24 History
20 mg 24hr capsule,extend release
(Adderall XR)
duloxetine 30 mg capsule,delayed 30 mg PO DAILY 10/12/24 10/12/24 History
release
eptinezumab-jjmr 100 mg/mL 1 mg IV [id number] migraine 10/12/24 10/12/24 History
intravenous solution (Vyepti) prevention
famotidine 40 mg tablet 40 mg PO HS Gastrointestinal Issue 10/12/24 10/12/24 History
fluticasone 100 mcg-salmeterol 50 1 inh inhalation BID 10/12/24 10/12/24 History
mcg/dose blistr powdr for
inhalation (Wixela Inhub)
gabapentin 300 mg capsule 300 mg PO TID 10/12/24 10/12/24 History
omeprazole 40 mg capsule,delayed 40 mg PO DAILY 10/12/24 10/12/24 History
release
onabotulinumtoxinA 100 unit 200 unit IM [id number] migraines 10/12/24 10/12/24 History
solution for injection (Botox)
rimegepant 75 mg disintegrating 75 mg PO DAILYPRN PRN migraine 10/12/24 10/12/24 History
tablet (Nurtec ODT)
ropinirole 2 mg tablet 2 mg PO HS restless leg 10/12/24 10/12/24 History
temazepam 30 mg capsule 30 mg PO HS Sleep 10/12/24 10/12/24 History
Review of Systems
-
History Source: Patient
All other systems: Negative unless noted
Physical Exam
Vital Signs
Temp Pulse Resp BP Pulse Ox
98.7 F 137 23 165/84 94
10/12/24 15:39 10/12/24 16:30 10/12/24 16:30 10/12/24 16:30 10/12/24 16:30
Lab Results
10/12/24 05:44
10/12/24 05:44
Physical Exam
General: Respiratory Distress and Other (on supp O2)
HEENT: Normocephalic, Anicteric and Moist Mucous Membranes
Respiratory: Wheezes and Rhonchi
Cardiac: S1/S2, Irregular Rhythm and Other (rapid rate)
GI: Soft, Non Tender, Non Distended and Normal Bowel Sounds
Musculoskeletal: No Clubbing, No Cyanosis and No Edema
Skin: Warm and Dry
Neuro: AO x 3
Impression / Plan
-
PCP Dr. Huber
Cardiology: Seen by Dr. Carrasco in 2008
Impression:
Admitted with RUL PNA and AE asthma 10/11/2024
Sepsis
Dehydration
Atrial fibrillation/typical flutter with RVR
Paroxysmal atrial fibrillation and flutter seen on outpatient 48-hour Holter monitor 09/29/2024
Prolonged QT, 569 ms by ECG 10/12/2024, suspect inaccurate due to arrhythmia
Depression and anxiety
RLS
GERD
Insomnia
h/o PE 2006
48-hour Holter monitor 09/29/2024: Predominantly NSR, paroxysmal atrial fibrillation and mostly typical atrial flutter with overall 5% burden, no bradycardia
Echo 09/29/2024: EF 60 to 65%, no significant valve disease, small pericardial effusion without evidence of hemodynamic compromise
Plan:
-Patient came to the ER yesterday with increased SOB and cough with symptoms that had started several days prior and was admitted with PNA and sepsis, cardiology is now consulted for rapid atrial flutter. Patient following with PCP and recently had
outpatient Holter monitor and echo for palpitations and was found to have atrial flutter with a 5% burden. Echo was unremarkable, both studies reviewed by me as outlined above. Earlier today patient with evidence of SVT followed by more clear
rapid atrial flutter on telemetry monitoring. Patient just given Cardizem 10 mg IV x 1 and then started on Cardizem gtt @5. Patient was not taking BB or CCB prior to admission. Patient was not on OAC prior to admission. 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
-ECG reviewed by me, patient appears to be in sinus tachycardia at that time and QTc prolonged at 569 ms. Repeat ECG 10/12/2024 at 1619 looks more like A-fib with RVR and QTc has shortened to 416 ms. suspect QTc measurements inaccurate. holding OP
trazodone for now
-Patient was given Cardizem 10 mg IV x 1 and is now ordered Cardizem gtt @5 with titration. patient to be transferred to IMU/higher level of care
-[id number] is 0. would consider for short term OAC in acute setting. patient denies history of bleeding or significant falls
-TSH pending
-receiving IVF as suspect dehydrated
-treatment of PNA as per hospitalist. would consider pulmonary input. no evidence of PE by Chest CTA
-wean supp O2 as able
-will arrange OP EP follow up to discuss ablation
-d/w nursing. d/w hospitalist
Data Reviewed
-
EKG: Tracing Personally Visualized and interpreted
CT Scan: Report Reviewed by me
Medical Tests (Nuc Med, Echo etc): Report Reviewed by me
Labs: Labs Reviewed by me
Old Records: Reviewed
--- NOTE | 2024-10-12 16:50 | CM ---
Alert awake oriented patient who lives
alone in a 1 story home with 3 steps to enter.She is independent in activates of daily living.She does drive .She [facility].
No VN in past . No SNF hx
Pharmacy [facility] [address]
PCP Dr Huber
PLAN Home with no needs
--- NOTE | 2024-10-12 16:56 | W.CHA2DS2VAS ---
[id number] Score
Score
Age in Years (65=0, 65-74=1, >/=75=2): <65
Sex (Female=+1): Female
Congestive Heart Failure History (Yes=+1): No
Hypertension History (Yes=+1): No
Stroke/TIA/Thromboembolism History (Yes=+2): No
Vascular Disease History (Yes=+1): No
Diabetes Mellitus (Yes=+1): No
Score >/=2 is otherwise an anticoagulation candidate: 1
[2024-10-12] MEDS: LOVENOX 40 MG SC (17:05)
[2024-10-12 17:27] LABS: TSH 1.49 uIU/ml (0.47-4.68)
--- NOTE | 2024-10-12 17:30 | TRANSFER ---
pt being transfered to IMU. report provided via phone to Valery Aguilera. at this time pt is on cardizem drip at 10mg/hr and nss infusing at 80ml/hr without issue. remains on 4L nc. pt informed of pending transfer. cards stopped by to assess pt. plan
of care continues to be follow.
[2024-10-12 18:20] VITALS: BP 152/88
--- NOTE | 2024-10-12 18:24 | PTCARENOTE ---
Received patient on transfer from via bed with cardizem infusing at 15mg/hr and NSS infusing at 80ml/hr. O2 4l n/c in use. Patient able to ambulate to new bed. +VERMA, frequent harsh cough, occasionally productive per patient with green sputum. HR
110-113 on arrival after ambulation. HR did increase to 130s briefly after coughing but returned to 113. Lungs coarse t/o with ins/exp wheeze noted. BP 152/88.
--- NOTE | 2024-10-12 18:30 | PTCARENOTE ---
Cannot verify accuracy of vital signs prior to arrival to this unit today at 18:24.
--- NOTE | 2024-10-12 19:13 | PTCARENOTE ---
Patient's HR fluctuating between 104-120s, currently 123. Cardizem max'd at 15mg/hr to maintain HR 80-100. TT sent to Dr Irizarry; ok to have HR in the 120s overnight, per Dr Irizarry, and he will reassess in the morning. Reported off to night monitor.
TT forwarded to oncoming NED [place] as well.
[2024-10-12] MEDS: ROCEPHIN 2000 MG IV (19:40)
[2024-10-12] MEDS: STERILE WATER FOR INJECTION 20 ML IV (19:41)
[2024-10-12 20:00] VITALS: BP 161/90
[2024-10-12] MEDS: ATROVENT NEBULES 0.5 MG INH (20:04)
[2024-10-12] MEDS: PEPCID 20 MG PO (21:29)
[2024-10-12] MEDS: RESTORIL 30 MG PO (21:37)
[2024-10-12 22:00] VITALS: BP 158/85
[2024-10-12] MEDS: REQUIP 2 MG PO (22:22)
--- NOTE | 2024-10-12 22:42 | PTCARENOTE ---
[facility] Patient aao x3, able to make needs known. C/o headache 09/10. Multiple calls to pharmacy to send prn ibprofen to unit. Ibprofen administered when received. Patient c/o perez 02/10 at that time. RN spoke with Jaradestrella
JEFRY Witt, requested prn Imitrex as patient states she received earlier today with positive results. STAT order entered and rn administered. Patient continues to be in uncontrolled afib/aflutter at times with hr 110's-120's. Dr. Irizarry aware
at start of shift. Patient continues on 4L o2 n/c, lung sounds coarse throughout with inspiratory and expiratory wheezing noted. Harsh cough noted. RN encouraged use of IS, patient verbalizes understanding. Appetite remains poor. Patient tachy at
times to the 140's, quickly recovers to 110's-120's. Pox currently 89%, o2 increased to 6L n/c. Call mederos within reach, will continue to monitor patient closely.
[2024-10-13] VITALS (12 sets, daily range): BP systolic 112–159; BP diastolic 74–129
[2024-10-13] MEDS: CARDIZEM 125 IV ×2 (00:26→12:04)
--- NOTE | 2024-10-13 01:17 | PTCARENOTE ---
Patient pox 88% sustained, increased patient to 8L o2 n/c. Pox between 88-91% on the 8L. Message send to RT, RT started patient on Midflow at 10L o2, pox currently 91-92%. Positive effects noted from Imitrex, patient able to sleep and observed with
comfort. Call mederos within reach, will continue to monitor patient closely.
[2024-10-13] MEDS: TYLENOL 650 MG PO ×2 (02:49→20:12)
[2024-10-13] MEDS: MOTRIN 400 MG PO (04:35)
[2024-10-13 05:03] LABS: % Basophils 0.3 % (0-2); % Eosinophils 0.4 % (0-6); % Immature Granulocytes 0.7 % (0-0.5); % Lymphocytes 8.2 % (20.5-51.1); % Monocytes 7.9 % (1.7-9.3); % Neutrophils 82.5 % (42.2-75.2); Absolute Basophils 0.1 10^3/uL (0-0.2); Absolute Eosinophils 0.1 10^3/uL (0-0.7); Absolute Immature Granulocytes 0.1 10^3/uL (0-0.05); Absolute Lymphocytes 1.3 10^3/uL (1.2-3.4); Absolute Monocytes 1.2 10^3/uL (0.1-0.6); Hematocrit 36.3 % (37.0-47.0); Hemoglobin 12.6 g/dL (12.0-16.0); Mean Corp Hgb Conc. 34.7 g/dL (33.0-37.0); Mean Corpuscular Hgb 29.2 pg (27.0-31.0); Mean Platelet Volume 10.1 fL (7.4-10.4); Nucleated Red Blood Cells % 0 %; Platelet Count 247 10^3/uL (130-400); Red Blood Cell Count 4.32 10^6/uL (4.20-5.40); Red Cell Dist. Width 13.9 % (11.5-14.5); White Blood Cell Count 15.8 10^3/uL (4.8-10.8)
[2024-10-13 05:47] LABS: Blood Urea Nitrogen 18 mg/dl (7-17); Carbon Dioxide 22 mmol/L (22-30); Chloride 115 mmol/L (98-107); Estimated Creatinine Clearance 110 ml/min; Glucose 125 mg/dl (70-99); Potassium 3.9 mmol/L (3.5-5.1); Sodium 143 mmol/L (135-145); eGFR > 60.00
[2024-10-13] MEDS: ATROVENT NEBULES 0.5 MG INH ×3 (07:24→19:54)
[2024-10-13] MEDS: ADVAIR HFA 45/21 MCG INHALER 2 PUFF INH ×2 (07:25→19:54)
--- NOTE | 2024-10-13 07:35 | W.PN.HOSP.TC ---
Today's Communication/Plan
-
Remains on IV dilt gtt; follow up cardiology recs on switch to oral meds/ AC
Broaden antibiotics to Cefepime/Vanc/Doxy for now - will narrow once MRSA swab and sputum culture results
change oral prednisone to IV Decadron
Pulmonary consulted
continue TID Atrovent, home inhalers; albuterol held with RVR
IV Decadron/IV Mag/ AERONAUTICS TEACHER Nurtec and Compazine PRN for migraine
Assessment / Plan
Assessment / Plan
IMPRESSION:
59-year-old female with past medical history of mild intermittent asthma, depression/anxiety, recent urgent care visit day prior where started on Augmentin/Azithro for PNA presened to the emergency department with progressive cough shortness of
breath and hypoxia. CT chest negative for PE, showed right lower lobe pneumonia consolidation. She was hypoxic to 85% on room air and tachycardia. Hospital course complicated by afib with RVR. Outpatient Holter monitor recently performed with e/o
aflutter.
Chest CT
IMPRESSION:
1. No evidence of pulmonary embolism.
2. Confluent pneumonia in the superior segment right lower lobe. Recommend follow-up imaging after treatment to rule out underlying mass. Infectious/inflammatory bronchiolitis change in the right upper and lower lobes.
PLAN:
Pneumonia with sepsis and hypoxia.
Hypoxic Respiratory Failure
- transferred to IMU afternoon of 10/12 for afib with RVR; progressive oxygen needs overnight
-covid and flu tested at urgent care - negative
- legionella and pneumococcal urinary ag
- follow up sputum culture
- follow up blood cultures and MRSA screen
- patient was admitted on iV Ceftriaxone/Azithro (changed to Doxy with 2 EKG's reporting prolonged Qtc although may have been misread). 10/13 - I will broaden to IV Cefepime given increased O2 needs
-repeat CXR
- admitted on oral prednisone - will start IV Decadron today
- supportive measures with NEBS RTC; albuterol held with afib with RVR
- continue patient's home Wixela
- incentive spirometry
- keep sat > 93%
Atrial Fibrillation with RVR
-outpatient Halter monitor read aflutter
-CHADS2-Vasc score = 1
-appreciate cardiology
-started on IV Diltiazem gtt
-TSH WNL
-recent echo: 09/29/24: Normal biventricular size and systolic function without regional wall motion
abnormality. Estimated LVEF 60-65%.
No significant valve disease.
Prolonged QTc read on EKG - this was likely false reading in setting of aflutter. It resolved quickly with rhythm in afib; and remains WNL this morning
-K and Mag OK
Depression/Anxiety
- duloxetine 30 daily
- AERONAUTICS TEACHER Gabapentin 300mg TID
- resume Trazodone with normal Qtc again seen this AM
Migraines
-Imitrex given here (do not carry patient's AERONAUTICS TEACHER Nurtec). She has one dose in bag, will order now
-IV Decadron may help
-IV Mag 1G x 1 now
-IV Compazine PRN (lower dose 2/2 interaction with AERONAUTICS TEACHER Requip - discussed with pharmacy)
GERD
-AERONAUTICS TEACHER PPI daily; pepcid qhs
DVT PPX - lovenox sq
Code status - Full Code
51 minutes spent on patient care
Anticipated Discharge: > 48 hours
Subjective/Interval History
-
Date of Service: October 13, 2024
intermittent migraine headache, some relief with Imitrex
continuing to cough but lungs feel slightly improved
Objective Data
-
Labs:
Laboratory Results
10/13/24
04:47
WBC 15.8 H
Hgb 12.6
Hct 36.3 L
Plt Count 247
Sodium 143
Potassium 3.9
Chloride 115 H
Carbon Dioxide 22
BUN 18 H
Creatinine 0.6
Glucose 125 H
Calcium 9.0
Vital Signs:
Vital Signs
Temp Pulse Resp BP Pulse Ox
98.3 F 89 18 129/80 92
10/13/24 02:40 10/13/24 07:27 10/13/24 07:27 10/13/24 02:00 10/13/24 07:27
I&O
10/12/24 10/13/24 10/14/24
06:59 06:59 06:59
Intake Total 480 / 480 1000 / 1000
Output Total 350 / 350
Balance 130 / 130 1000 / 1000
Review of Systems
-
History Source: Patient
All other systems: Reviewed and negative
Physical Exam
-
General: No Apparent Distress
HEENT: PERRLA
Respiratory: Wheezes
Cardiac: S1/S2 and Irregular Rhythm
GI: Soft, Nontender and Nondistended
Musculoskeletal: No Edema
Skin: Warm and Dry; Negative Rash
Neuro: AO x 3
Psych: Calm
Data Reviewed
-
Diagnostic Radiology: Report Reviewed by me
Labs: Labs Reviewed by me
[2024-10-13] MEDS: NEURONTIN 300 MG PO ×3 (08:22→21:20)
[2024-10-13] MEDS: VIBRAMYCIN 100 MG PO ×2 (08:22→20:12)
[2024-10-13] MEDS: MAXIPIME 2000 MG IV ×2 (08:23→16:14)
[2024-10-13] MEDS: CYMBALTA DELAYED RELEASE 30 MG PO (08:23)
[2024-10-13] MEDS: STERILE WATER FOR INJECTION 10 ML IV ×2 (08:23→16:14)
[2024-10-13] MEDS: DECADRON 4 MG IV ×2 (08:23→16:14)
[2024-10-13] MEDS: MUCINEX 600 MG PO ×2 (08:23→20:12)
[2024-10-13] MEDS: PROTONIX 40 MG PO (08:23)
[2024-10-13] MEDS: VISBIOME 1 CAP PO (08:23)
[2024-10-13] MEDS: MAGNESIUM SULFATE 100 IV (08:24)
--- NOTE | 2024-10-13 08:40 | PN.CDI ---
CDI
- -
CDI:
Physician Documentation Request
Admit Date: 10/11/24 22:05
Dear Doctor Ronald,
Patient admitted for sepsis.
10/13 PCN: 'Patient pox 88% sustained, increased patient to 8L o2 n/c. Pox between 88-91% on the 8L. Message send to RT, RT started patient on Midflow at 10L o2, pox currently 91-92%.'
10/13 Hospitalist PN: 'Hypoxic Respiratory Failure
- transferred to IMU afternoon of 10/12 for afib with RVR; progressive oxygen needs overnight'
Clarify which of the following accurately represents the acuity of the hypoxic respiratory failure. Possible options might include:
____ Acute
Compensated
____ Other
Use of terms such as suspected, likely, concern for, or probable (associated with a specific diagnosis that is being evaluated, monitored, or treated as if it exists) are acceptable and can be coded in the inpatient setting, when documented at the
time of discharge.
Thank you,
Vivien Selby RN, BSN
CDI Specialist
Available via [facility] text
Please use your independent medical judgment in providing your response.
--- NOTE | 2024-10-13 08:57 | CON.PUL ---
Consultation
Consultation Request
Date/Time Consultation Requested: 10/13/24
Date/Time Consultation Performed: 10/13/24
Performing Provider: Kim
Reason for Consultation: SOB
Medical History
-
History of Present Illness:
Patient is a 59-year-old with past medical history of mild asthma, sleep apnea, GERD, anxiety/depression presenting to the emergency department with worsening shortness of breath and cough. Patient developed sore throat about 5 days ago. She was
seen in the emergency department for wheezing and coughing about 2 days ago and was prescribed Augmentin, azithromycin and prednisone. Reported ulse oximetry at home was noted to be 85% on RA (filiberto). In the emergency department today she was
afebrile with a temp of 98.5. Blood pressure was 120/68 and pulse rate of 126. Oxygen saturation was 91% on room air. Chest x-ray shows no acute interval changes with suggestion of left basilar atelectasis and/or pneumonia. Patient had a CT PE
study which was negative for PE. He however did show pneumonia consolidation in the medial aspect of the superior segment of the right lower lobe.
Past Medical History
Past Medical History: Other (see list below)
Social History
Tobacco: Non-smoker
Alcohol: None
Drug: None
Allergies / Home Medications
Allergies
Allergy/AdvReac Type Severity Reaction Status Date / Time
droperidol Allergy Tardive Verified 10/12/24 22:30
dyskenesia
haloperidol (From Haldol) Allergy Tardive Verified 10/12/24 22:30
dyskenesia
venom-honey bee Allergy BEE Verified 10/12/24 22:30
STINGS-SWELLING
Home Medications
�Medication �Instructions �Recorded �Confirmed �Last Taken �Type
cyanocobalamin (vitamin B-12) 1,000 mcg PO DAILY 11/12/17 10/12/24 Unknown Rx
1,000 mcg tablet
ketamine 100 mg/mL injection 150 mg IV MONTHLY Depression 04/16/22 10/12/24 10/06/24 History
solution
trazodone 100 mg tablet 400 mg PO HS Sleep 04/16/22 10/12/24 10/10/24 History
albuterol sulfate 90 mcg/actuation 2 puff inhalation Q6H PRN 10/12/24 10/12/24 10/09/24 History
aerosol inhaler shortness of breath
carisoprodol 350 mg tablet 350 mg PO BIDPRN PRN muscle spasm 10/12/24 10/12/24 Unknown History
cholecalciferol (vitamin D3) 25 25 mcg PO DAILY 10/12/24 10/12/24 Unknown History
mcg (1,000 unit) tablet (Vitamin
D3)
dextroamphetamine-amphetamine ER 20 mg PO DAILYPRN PRN WORK 10/12/24 10/12/24 10/08/24 History
20 mg 24hr capsule,extend release
(Adderall XR)
duloxetine 30 mg capsule,delayed 30 mg PO DAILY 10/12/24 10/12/24 10/11/24 History
release
eptinezumab-jjmr 100 mg/mL 1 mg IV [id number] migraine 10/12/24 10/12/24 1 Month Ago History
intravenous solution (Vyepti) prevention ~09/11/24
famotidine 40 mg tablet 40 mg PO HS Gastrointestinal Issue 10/12/24 10/12/24 1 Week Ago History
~10/05/24
fluticasone 100 mcg-salmeterol 50 1 inh inhalation BID 10/12/24 10/12/24 10/11/24 History
mcg/dose blistr powdr for
inhalation (Wixela Inhub)
gabapentin 300 mg capsule 300 mg PO TID 10/12/24 10/12/24 Unknown History
omeprazole 40 mg capsule,delayed 40 mg PO DAILY 10/12/24 10/12/24 Unknown History
release
onabotulinumtoxinA 100 unit 200 unit IM [id number] migraines 10/12/24 10/12/24 1 Month Ago History
solution for injection (Botox) ~09/11/24
rimegepant 75 mg disintegrating 75 mg PO DAILYPRN PRN migraine 10/12/24 10/12/24 10/06/24 History
tablet (Nurtec ODT)
ropinirole 2 mg tablet 2 mg PO HS restless leg 10/12/24 10/12/24 10/10/24 History
temazepam 30 mg capsule 30 mg PO HS Sleep 10/12/24 10/12/24 10/10/24 History
Review of Systems
-
History Source: Patient
All other systems: Negative unless noted
Vitals / Labs / Diagnostic Testing
Vital Signs
Temp Pulse Resp BP Pulse Ox
98.3 F 89 18 129/80 92
10/13/24 02:40 10/13/24 07:27 10/13/24 07:27 10/13/24 02:00 10/13/24 07:27
Lab Data
10/13/24 04:47
10/13/24 04:47
Microbiology
10/11/24 22:23 Nose MRSA Screen - Final
No Methicillin Resistant Staphylococcus aureus isolated.
10/11/24 17:20 Blood/Venous Blood Culture - Preliminary
No Growth in 24 hours- Final report to follow
10/11/24 17:20 Blood/Venous Blood Culture - Preliminary
No Growth in 24 hours- Final report to follow
10/12/24 13:04 Sputum Gram Stain - Preliminary
10/12/24 13:02 Feces/Stool C. difficile GDH Antigen & Toxins - Final
Negative for toxigenic C.difficile
10/12/24 05:56 Urine Legionella Urinary Antigen - Final
Negative for Legionella pneumophila Serogroup 1 antigen.
A negative result does not rule out the possiblity of
Legionella infection due to other serogroups or species of
Legionella. Clinical correlation is recommended.
10/12/24 05:56 Urine Streptococcus pneumoniae Antigen (M - Final
Negative for Streptococcus pneumoniae antigen.
A negative result does not exclude infection with
Streptococcus pneumoniae. Clinical correlation is
recommended.
Diagnostic Testing:
Physical Exam
-
HEENT: Normocephalic, Anicteric and Moist Mucous Membranes
Cardiovascular: S1/S2 and Regular Rhythm
Respiratory: Rhonchi (R base) and Non-Labored Respirations
GI: Soft, Non Distended and Non Tender
Neurology: Awake, Alert, Oriented and No Motor Deficits
Skin: Warm, Dry and Good Color
General: Comfortable and Other (NAD)
Assessment
-
Patient is a 59-year-old with past medical history of mild asthma, sleep apnea, GERD, anxiety/depression presenting to the emergency department with worsening shortness of breath and cough. Patient developed sore throat about 5 days ago. She was
seen in the emergency department for wheezing and coughing about 2 days ago and was prescribed Augmentin, azithromycin and prednisone. Reported ulse oximetry at home was noted to be 85% on RA (filiberto). In the emergency department today she was
afebrile with a temp of 98.5. Blood pressure was 120/68 and pulse rate of 126. Oxygen saturation was 91% on room air. Chest x-ray shows no acute interval changes with suggestion of left basilar atelectasis and/or pneumonia. Patient had a CT PE
study which was negative for PE. He however did show pneumonia consolidation in the medial aspect of the superior segment of the right lower lobe.
Possible RLL PNA
SOB/cough
Pulmonary insufficiency, 85% on RA at home, 91% on RA in ER
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
GERD
PTSD
Complex regional pain syndrome type 1, affecting unspecified site
Recurrent major depressive disorder
s/p ECT treatments
She had several inpatient psychiatric admissions for suicidal ideations and attempts since 1988
Prior suicide attempt with self-evisceration with a knife 2016, has tried Rx overdoses in past as well
History of 302 commitments
Obesity, BMI 30
Nocturnal Hypoxemia w/o OSAS- HST 4/24/25: AHI 1.1, Nocturnal hypoxemia noted-38% on study below 90%, 1L needed to maintain sat >90%
Migraine without status migrainosus, not intractable
Mild intermittent asthma without complication
Paresthesia of arm
Irritable bowel syndrome
Generalized anxiety disorder
Memory loss
Fibromyalgia
Mixed hyperlipidemia
Myalgia
Plan
Hypoxemia noted on arrival, she is on 8L
There is no known history of O2 use at home
There is known prior history of lung disease including asthma, nocturnal hypoxemia (HST neg for OSAS)
She likely has bibasilar atelectasis contributing to hypoemia
Encouraged IS, OOB
She does feel her SOB has already been improving
Cough noted, productive
Sputum culture with calin
She is placed on empiric abx
CXR/CT obtained indicating RLL infiltrate
Other imaging reviewed
ECHO results in past reviewed, normal function
Diuresis--no indication
Will need outpatient pulmonary evaluation in our office including PFTs and 6MWT
Reviewed with patient
She will need FU for her nocturnal hypoxemia, has POC at home
Obesity likely contributing to respiratory symptoms as well
Weight loss measures recommended
We will follow
Diagnostic Data
CXR 10/13/24- Patchy bilateral parenchymal opacities within the mid to lower lungs, increasing since previous examinations, compatible with increasing bilateral pneumonia.
CT CHEST 10/11/24- 1. No evidence of pulmonary embolism.
2. Confluent pneumonia in the superior segment right lower lobe. Recommend follow-up imaging after treatment to rule out underlying mass. Infectious/inflammatory bronchiolitis change in the right upper and lower lobes.
ECHO 09/29/24- Normal biventricular size and systolic function without regional wall motion abnormality. Estimated LVEF 60-65%. No significant valve disease. Small pericardial effusion without evidence of hemodynamic compromise. Compared to 03/12/23:
no significant change.
PFT
Reports and relevant images were personally reviewed.
-----
Total time spent on this consultation _65__ minutes which includes review of history, physical exam, medications, llaboratory data, personal review of imaging, extensive review of outpatient records, and discussions with care team.
[2024-10-13] MEDS: COMPAZINE 5 MG IV ×2 (09:03→18:18)
[2024-10-13] MEDS: VANCOCIN 540 MG IV (09:14)
--- NOTE | 2024-10-13 09:28 | PHA.VAN.IN ---
Assessment
- Assessment
Renal Function: Appears similar to baseline
Concomitant Antimicrobials: cefepime; doxycycline
AUC Dosing Plan
- Dosing Variables
Dosing Weight (kg): 83
Dosing CrCl (ml/min): 100
Vd coefficient (L/kg): 0.7
- Empiric Dosing
Initial / Loading Dose: 2000 mg LD - adm 0910/13
Maintenance Regimen: 1250 mg q12h to start this evening
Estimated AUC (mcg*h/mL): 525
Estimated Peak (mcg*h/mL): 33.1
Estimated Trough (mcg/ml): 13.2
Estimated Half Life (H): 7.9
- Monitoring
No levels ordered at this time: consider levels when pt nears steady state
Pharmacokinetics Vancomycin I
- -
Patient Age: 59
Patient Sex: Female
Vancomycin Day #: 1
Indication: Pulmonary/Respiratory
Requesting Provider: Ronald
Height / Weight:
Height 5 ft 5 in
Actual Weight 82.696 kg
- Vital Signs / Lab Results
Temp Pulse Resp BP Pulse Ox
97.7 F 89 18 129/80 92
10/13/24 07:14 10/13/24 07:27 10/13/24 07:27 10/13/24 02:00 10/13/24 07:27
Lab Results - Hematology
10/11/24 10/12/24 10/13/24
17:20 05:44 04:47
WBC 12.3 H 14.5 H 15.8 H
Lab Results - Chemistry
10/11/24 10/12/24 10/13/24
17:20 05:44 04:47
BUN 15 15 18 H
Creatinine 0.9 0.7 0.6
Estimated Creat Clear 94 110
Albumin 3.8
10/11/24 10/11/24
17:20 21:15
Lactic Acid 1.4 Cancelled
Microbiology Results
10/12/24 13:04 Respiratory Culture - Preliminary
Sputum Cata albicans
Gram Stain - Preliminary
10/11/24 22:23 MRSA Screen - Final
Nose No Methicillin Resistant Staphylococcus aureus isolated.
10/11/24 17:20 Blood Culture - Preliminary
Blood/Venous No Growth in 24 hours- Final report to follow
10/11/24 17:20 Blood Culture - Preliminary
Blood/Venous No Growth in 24 hours- Final report to follow
10/12/24 13:02 C. difficile GDH Antigen & Toxins - Final
Feces/Stool Negative for toxigenic C.difficile
10/12/24 05:56 Legionella Urinary Antigen - Final
Urine Negative for Legionella pneumophila Serogroup 1 antigen.
A negative result does not rule out the possiblity of
Legionella infection due to other serogroups or species of
Legionella. Clinical correlation is recommended.
Streptococcus pneumoniae Antigen (M - Final
Negative for Streptococcus pneumoniae antigen.
A negative result does not exclude infection with
Streptococcus pneumoniae. Clinical correlation is
recommended.
--- NOTE | 2024-10-13 11:05 | W.PN.CARDCBS ---
Today's Communication / Plan
-
Continues with atrial fib with adequate rate control.
Transtion off IV Cardizem
Start Cardizem CD 120 mg daily
Cont Eliquis
We will cont to pursue a rate control strategy for now as she is being treated for PNA
Eventual rhythm control therapy reeval once improved from PNA as outpt with consideration for possible cv vs JONATHAN/cv and eventual discussion of ablation.
Echo with preserved EF.
will arrange outpt follow up.
Impression / Plan
-
.
PCP Dr. Huber
Cardiology: Seen by Dr. Carrasco in 2008
Impression:
Admitted with RUL PNA and AE asthma 10/11/2024
Sepsis
Dehydration
Atrial fibrillation/typical flutter with RVR
Paroxysmal atrial fibrillation and flutter seen on outpatient 48-hour Holter monitor 09/29/2024
Prolonged QT, 569 ms by ECG 10/12/2024, suspect inaccurate due to arrhythmia
Depression and anxiety
RLS
GERD
Insomnia
h/o PE 2006
48-hour Holter monitor 09/29/2024: Predominantly NSR, paroxysmal atrial fibrillation and mostly typical atrial flutter with overall 5% burden, no bradycardia
Echo 09/29/2024: EF 60 to 65%, no significant valve disease, small pericardial effusion without evidence of hemodynamic compromise
Plan:
Continues with atrial fib with adequate rate control.
Transtion off IV Cardizem
Start Cardizem CD 120 mg daily
Cont Eliquis
We will cont to pursue a rate control strategy for now as she is being treated for PNA
Eventual rhythm control therapy reeval once improved from PNA as outpt with consideration for possible cv vs JONATHAN/cv and eventual discussion of ablation.
Echo with preserved EF.
will arrange outpt follow up.
HPI: Patient came to the ER yesterday with increased SOB and cough with symptoms that had started several days prior and was admitted with PNA and sepsis, cardiology is now consulted for rapid atrial flutter. Patient following with PCP and recently
had outpatient Holter monitor and echo for palpitations and was found to have atrial flutter with a 5% burden. Echo was unremarkable, both studies reviewed by me as outlined above. Earlier today patient with evidence of SVT followed by more clear
rapid atrial flutter on telemetry monitoring. Patient just given Cardizem 10 mg IV x 1 and then started on Cardizem gtt @5. Patient was not taking BB or CCB prior to admission. Patient was not on OAC prior to admission. 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
Subjective
Date of Service: October 13, 2024
pt seen and examined. No cp or dyspnea.
Objective
Labs:
10/13/24 04:47
10/13/24 04:47
Labs
Hgb 12.6 g/dL (12.0-16.0) 10/13/24 04:47
Hct 36.3 % (37.0-47.0) L 10/13/24 04:47
Plt Count 247 10^3/uL (130-400) 10/13/24 04:47
Sodium 143 mmol/L (135-145) 10/13/24 04:47
Potassium 3.9 mmol/L (3.5-5.1) 10/13/24 04:47
BUN 18 mg/dl (7-17) H 10/13/24 04:47
Creatinine 0.6 mg/dL (0.6-1.0) 10/13/24 04:47
Glucose 125 mg/dl (70-99) H 10/13/24 04:47
Vital Signs and I&O:
Vital Signs
Temp Pulse Resp BP Pulse Ox
97.7 F 89 18 129/80 92
10/13/24 07:14 10/13/24 07:27 10/13/24 07:27 10/13/24 02:00 10/13/24 07:27
Vital Signs
Temp Pulse Resp BP Pulse Ox
97.7 F 89 18 129/80 92
10/13/24 07:14 10/13/24 07:27 10/13/24 07:27 10/13/24 02:00 10/13/24 07:27
Intake & Output
10/11/24 10/12/24 10/13/24 10/14/24
06:59 06:59 06:59 06:59
Intake Total 480 / 480 1000 / 1000
Output Total 350 / 350 600 / 600
Balance 130 / 130 1000 / 1000 -600 / -600
Physical Exam
Physical Exam
General: No acute distress, AAOX3
Neck: Negative JVD
Heart: Irregularly irregular, Negative S3 positive S1/S2, Negative S4, No murmur
Lungs: CTA b/l, negative wheezes/rales/rhonchi
Abd: Positive BS, NT/ND, neg rebound/rigidity/guarding
Ext: Negative cyanosis/clubbing/edema
Neuro: nonfocal
[2024-10-13] MEDS: CARDIZEM CD 120 MG PO (14:25)
--- NOTE | 2024-10-13 15:34 | CM ---
Reviewed the chart notes and spoke with the patient at the bedside. The patient in mid-flow O2 @ 8L/min. CM continues to be available to patient/family and is monitoring medical plan for needs at discharge.
Plan: Discharge plans will depend on the patient's progress.
[2024-10-13] MEDS: ELIQUIS 5 MG PO (17:03)
--- NOTE | 2024-10-13 17:41 | PTCARENOTE ---
Pt says she is feeling better today. Still requiring 8L midflow oxygen and VERMA. OOB to chair but only tolerated for 1 hour. Migraine resolved since this morning. Started on PO Cardizem and gtt discontinued. Started on Eliquis.
[2024-10-13] MEDS: NON-FORMULARY ITEM 75 MG PO (18:14)
[2024-10-13] MEDS: VANCOCIN 275 MG IV (20:12)
[2024-10-13] MEDS: ROBITUSSIN 200 MG PO (20:13)
[2024-10-13] MEDS: DESYREL 400 MG PO (21:20)
[2024-10-13] MEDS: PEPCID 20 MG PO (21:21)
[2024-10-13] MEDS: REQUIP 2 MG PO (21:21)
[2024-10-13] MEDS: RESTORIL 30 MG PO (21:32)
[2024-10-14] VITALS (12 sets, daily range): BP systolic 108–170; BP diastolic 73–141
[2024-10-14] MEDS: DECADRON 4 MG IV ×4 (00:19→23:03)
[2024-10-14] MEDS: STERILE WATER FOR INJECTION 10 ML IV ×4 (00:19→23:03)
[2024-10-14] MEDS: MAXIPIME 2000 MG IV ×4 (00:19→23:03)
[2024-10-14] MEDS: VANCOCIN 275 MG IV (05:02)
[2024-10-14 05:21] LABS: % Basophils 0.4 % (0-2); % Immature Granulocytes 2.3 % (0-0.5); % Lymphocytes 5.4 % (20.5-51.1); % Monocytes 3.5 % (1.7-9.3); % Neutrophils 88.4 % (42.2-75.2); Absolute Basophils 0.1 10^3/uL (0-0.2); Absolute Immature Granulocytes 0.4 10^3/uL (0-0.05); Absolute Lymphocytes 0.9 10^3/uL (1.2-3.4); Absolute Monocytes 0.6 10^3/uL (0.1-0.6); Absolute Neutrophils 14.8 10^3/uL (1.4-6.5); Hematocrit 35.8 % (37.0-47.0); Hemoglobin 12.6 g/dL (12.0-16.0); Mean Corp Hgb Conc. 35.2 g/dL (33.0-37.0); Mean Corpuscular Hgb 29.3 pg (27.0-31.0); Mean Corpuscular Volume 83.3 fL (81.0-99.0); Mean Platelet Volume 10.3 fL (7.4-10.4); Nucleated Red Blood Cells % 0 %; Platelet Count 280 10^3/uL (130-400); Red Cell Dist. Width 14.3 % (11.5-14.5); White Blood Cell Count 16.8 10^3/uL (4.8-10.8)
[2024-10-14 05:51] LABS: Blood Urea Nitrogen 18 mg/dl (7-17); Calcium 9.2 mg/dl (8.4-10.2); Carbon Dioxide 23 mmol/L (22-30); Chloride 115 mmol/L (98-107); Estimated Creatinine Clearance 94 ml/min; Glucose 144 mg/dl (70-99); Magnesium 2.4 mg/dl (1.6-2.3); Potassium 3.7 mmol/L (3.5-5.1); Sodium 145 mmol/L (135-145); eGFR > 60.00
[2024-10-14] MEDS: ADVAIR HFA 45/21 MCG INHALER 2 PUFF INH ×2 (06:57→19:04)
[2024-10-14] MEDS: ATROVENT NEBULES 0.5 MG INH ×3 (06:57→19:04)
--- NOTE | 2024-10-14 08:04 | W.PN.HOSP.TC ---
Addendum entered and electronically signed by Lana Cardenas MD 10/14/24 08:09:
Acute Hypoxic Resp Failure
-wean O2 as able
Original Note:
Today's Communication/Plan
-
IV Cefepime/Doxy
IV Decadron
Diltiazem, Eliquis
Wean O2 as able
appreciate Cardiology, Pulmonary consultations
Assessment / Plan
Assessment / Plan
IMPRESSION:
59-year-old woman with past medical history of mild intermittent asthma, depression/anxiety, recent urgent care visit day prior where started on Augmentin/Azithro for PNA presened to the emergency department with progressive cough shortness of
breath and hypoxia. CT chest negative for PE, showed right lower lobe pneumonia consolidation. She was hypoxic to 85% on room air and tachycardic. Hospital course complicated by afib with RVR. Outpatient Holter monitor recently performed with e/o
aflutter.
Chest CT
IMPRESSION:
1. No evidence of pulmonary embolism.
2. Confluent pneumonia in the superior segment right lower lobe. Recommend follow-up imaging after treatment to rule out underlying mass. Infectious/inflammatory bronchiolitis change in the right upper and lower lobes.
CXR 10/13/24
IMPRESSION:
Patchy bilateral parenchymal opacities within the mid to lower lungs, increasing since previous examinations, compatible with increasing bilateral pneumonia.
PLAN:
Pneumonia with sepsis and hypoxia.
Hypoxic Respiratory Failure
- transferred to IMU afternoon of 10/12 for afib with RVR; progressive oxygen needs overnight
- covid and flu tested at urgent care - negative
- legionella and pneumococcal urinary ag negative
- MRSA screen negative
- Cata in sputum culture
- patient was admitted on iV Ceftriaxone/Azithro (changed to Doxy with 2 EKG's reporting prolonged Qtc although may have been misread). 10/13 - I will broaden to IV Cefepime given increased O2 needs; no need for IV Vanc with negative MRSA screen
- repeat CXR results above
- admitted on oral prednisone - transitioned to IV Decadron 10/13
- supportive measures with NEBS RTC; albuterol held with afib with RVR
- continue patient's home Wixela
- incentive spirometry
- keep sat > 93%
- appreciate Pulmonary consult
Atrial Fibrillation with RVR
-outpatient Halter monitor read aflutter
-CHADS2-Vasc score = 1; Eliquis started per discussion with Cardiology
-appreciate cardiology
-started on IV Diltiazem gtt --> transitioned to oral Diltiazem
-TSH WNL
-recent echo: 09/29/24: Normal biventricular size and systolic function without regional wall motion
abnormality. Estimated LVEF 60-65%.
No significant valve disease.
Prolonged QTc read on EKG - this was likely false reading in setting of aflutter. It resolved quickly with rhythm in afib; and remains WNL this morning
-K and Mag OK
Depression/Anxiety
- duloxetine 30 daily
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
- resume Trazodone with normal Qtc again seen
Migraines
-s/p Imitrex
-s/p IV Mag, Compazine and Decadron with improvement
GERD
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
DVT PPX - lovenox sq
Code status - Full Code
51 minutes spent on patient care
Anticipated Discharge: > 48 hours
Subjective/Interval History
-
Date of Service: October 14, 2024
she feels her breathing is getting better today
continues to cough
headache resolved
Objective Data
-
Labs:
Laboratory Results
10/14/24
05:09
WBC 16.8 H
Hgb 12.6
Hct 35.8 L
Plt Count 280
Sodium 145
Potassium 3.7
Chloride 115 H
Carbon Dioxide 23
BUN 18 H
Creatinine 0.7
Glucose 144 H
Calcium 9.2
Vital Signs:
Vital Signs
Temp Pulse Resp BP Pulse Ox
98.0 F 102 16 151/84 92
10/14/24 03:00 10/14/24 06:59 10/14/24 06:59 10/14/24 06:00 10/14/24 06:59
I&O
10/13/24 10/14/24 10/15/24
06:59 06:59 06:59
Intake Total 1000 / 1000 1030 / 1030
Output Total 1100 / 1100
Balance 1000 / 1000 -70 / -70
Review of Systems
-
History Source: Patient
All other systems: Reviewed and negative
Physical Exam
-
General: No Apparent Distress
HEENT: PERRLA
Respiratory: Wheezes
Cardiac: S1/S2 and Irregular Rhythm
GI: Soft, Nontender and Nondistended
Musculoskeletal: No Edema
Skin: Warm and Dry; Negative Rash
Neuro: AO x 3
Psych: Calm
Data Reviewed
-
Diagnostic Radiology: Report Reviewed by me
Labs: Labs Reviewed by me
[2024-10-14] MEDS: PROTONIX 40 MG PO (09:04)
[2024-10-14] MEDS: NEURONTIN 300 MG PO ×3 (09:04→21:28)
[2024-10-14] MEDS: CARDIZEM CD 120 MG PO (09:05)
[2024-10-14] MEDS: VISBIOME 1 CAP PO (09:05)
[2024-10-14] MEDS: MUCINEX 600 MG PO ×2 (09:05→20:21)
[2024-10-14] MEDS: ELIQUIS 5 MG PO ×2 (09:05→20:21)
[2024-10-14] MEDS: CYMBALTA DELAYED RELEASE 30 MG PO (09:05)
[2024-10-14] MEDS: VIBRAMYCIN 100 MG PO ×2 (09:06→20:21)
--- NOTE | 2024-10-14 09:10 | W.PN.PUL3 ---
Today's Communication / Plan
-
Slow improvement, weaned to 6L--eventual home O2 eval
Continue abx, mucus clearance techniques
OOB, PT/OT
Encouraged IS use
OP FU to be arranged
Assessment
-
Patient is a 59-year-old with past medical history of mild asthma, sleep apnea, GERD, anxiety/depression presenting to the emergency department with worsening shortness of breath and cough. Patient developed sore throat about 5 days ago. She was
seen in the emergency department for wheezing and coughing about 2 days ago and was prescribed Augmentin, azithromycin and prednisone. Reported ulse oximetry at home was noted to be 85% on RA (filiberto). In the emergency department today she was
afebrile with a temp of 98.5. Blood pressure was 120/68 and pulse rate of 126. Oxygen saturation was 91% on room air. Chest x-ray shows no acute interval changes with suggestion of left basilar atelectasis and/or pneumonia. Patient had a CT PE
study which was negative for PE. He however did show pneumonia consolidation in the medial aspect of the superior segment of the right lower lobe.
Possible RLL PNA
SOB/cough
Acute hypoxic respiratory failure, 85% on RA at home, placed on 6-8L
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
GERD
PTSD
Complex regional pain syndrome type 1, affecting unspecified site
Recurrent major depressive disorder
s/p ECT treatments
She had several inpatient psychiatric admissions for suicidal ideations and attempts since 1988
Prior suicide attempt with self-evisceration with a knife 2016, has tried Rx overdoses in past as well
History of 302 commitments
Obesity, BMI 30
Nocturnal Hypoxemia w/o OSAS- HST 08/25/24: AHI 1.1, Nocturnal hypoxemia noted-38% on study below 90%, 1L needed to maintain sat >90%
Migraine without status migrainosus, not intractable
Mild intermittent asthma without complication
Paresthesia of arm
Irritable bowel syndrome
Generalized anxiety disorder
Memory loss
Fibromyalgia
Mixed hyperlipidemia
Myalgia
Plan
Hypoxemia noted on arrival, she is on 8L--weaned to 6L today
There is no known history of O2 use at home
Eventual home O2 eval
There is known prior history of lung disease including asthma, nocturnal hypoxemia (HST neg for OSAS)
She likely has bibasilar atelectasis contributing to hypoxemia
Encouraged IS, OOB
She does feel her SOB has already been improving
Cough noted, productive
Sputum culture with cata
She is placed on empiric abx
Continue airway clearance measures
CXR/CT obtained indicating RLL infiltrate
Other imaging reviewed
ECHO results in past reviewed, normal function
Diuresis--no indication
Will need outpatient pulmonary evaluation in our office including PFTs and 6MWT
Reviewed with patient
She will need FU for her nocturnal hypoxemia, has POC at home
Obesity likely contributing to respiratory symptoms as well
Weight loss measures recommended
Has O2 at home, but likely will need improvement to 3-4L NC to safely d/c
Diagnostic Data
CXR 10/13/24- Patchy bilateral parenchymal opacities within the mid to lower lungs, increasing since previous examinations, compatible with increasing bilateral pneumonia.
CT CHEST 10/11/24- 1. No evidence of pulmonary embolism.
2. Confluent pneumonia in the superior segment right lower lobe. Recommend follow-up imaging after treatment to rule out underlying mass. Infectious/inflammatory bronchiolitis change in the right upper and lower lobes.
ECHO 09/29/24- Normal biventricular size and systolic function without regional wall motion abnormality. Estimated LVEF 60-65%. No significant valve disease. Small pericardial effusion without evidence of hemodynamic compromise. Compared to 03/12/23:
no significant change.
PFT
Reports and relevant images were personally reviewed.
-----
Total time spent on this consultation _51__ minutes which includes review of history, physical exam, medications, llaboratory data, personal review of imaging, extensive review of outpatient records, and discussions with care team.
Subjective Data
-
Date of Service:
Date of Service: October 14, 2024
Chief Complaint: Pulmonary Follow Up
Subjective:
Improving, sitting in chair
O2 weaned to 6L, slow progress
Still appears dyspneic
Objective Data
Data Reviewed
Vital Signs / I&O / Oxygen:
Vital Signs
Temp Pulse Resp BP Pulse Ox
97.6 F 106 16 167/89 92
10/14/24 07:25 10/14/24 09:05 10/14/24 06:59 10/14/24 09:05 10/14/24 06:59
Intake and Output
10/13/24 10/14/24 10/15/24
06:59 06:59 06:59
Intake Total 1000 / 1000 1030 / 1030
Output Total 1100 / 1100
Balance 1000 / 1000 -70 / -70
SaO2 92
Nasal Cannula flow liters per 6
minute
Physical Exam
General: Respiratory Distress (mild), Comfortable and Other (NAD)
HEENT: Normocephalic, Anicteric and Moist Mucous Membranes
Cardiovascular: S1-S2 and Regular Rhythm
Respiratory: Crackles (bibasilar) and Non-Labored Respirations
GI: Soft, Non Distended and Non Tender
Neurology: Awake, Alert, Oriented and No Motor Deficits
Skin: Warm, Dry and Good Color
Labs/Micro/Reports
Lab Data
10/14/24 05:09
10/14/24 05:09
Microbiology
10/11/24 17:20 Blood/Venous Blood Culture - Preliminary
No Growth in 48 hours- Final report to follow
10/11/24 17:20 Blood/Venous Blood Culture - Preliminary
No Growth in 48 hours- Final report to follow
10/12/24 13:04 Sputum Respiratory Culture - Preliminary
Cata albicans
10/12/24 13:04 Sputum Gram Stain - Preliminary
10/11/24 22:23 Nose MRSA Screen - Final
No Methicillin Resistant Staphylococcus aureus isolated.
10/12/24 13:02 Feces/Stool C. difficile GDH Antigen & Toxins - Final
Negative for toxigenic C.difficile
10/12/24 05:56 Urine Legionella Urinary Antigen - Final
Negative for Legionella pneumophila Serogroup 1 antigen.
A negative result does not rule out the possiblity of
Legionella infection due to other serogroups or species of
Legionella. Clinical correlation is recommended.
10/12/24 05:56 Urine Streptococcus pneumoniae Antigen (M - Final
Negative for Streptococcus pneumoniae antigen.
A negative result does not exclude infection with
Streptococcus pneumoniae. Clinical correlation is
recommended.
[2024-10-14] MEDS: TYLENOL 650 MG PO ×2 (12:10→21:29)
--- NOTE | 2024-10-14 15:01 | W.PN.CARDCBS ---
Addendum entered and electronically signed by Damon Carrasco MD 10/14/24 15:22:
I saw and examined the patient.
The COLLEGE DIRECTOR or PA's note was reviewed and I agree with the note.
Comment: General: Well developed, well nourished in NAD.
Neck: Supple, no JVD, HJR, carotids +2 B/L, no bruits bilaterally.
Heart: Non displaced PMI, RRR, no murmurs, No S3, S4, no rubs.
Lungs: Scattered rhonchi
Extremities: No clubbing, cyanosis or edema bilaterally.
Neuro: Grossly nonfocal, awake, alert and oriented x3.
Stable cardiology status. Remains in sinus rhythm. Continue treatment for pneumonia. Will sign off, call with questions. Follow-up has been arranged
Original Note:
Today's Communication / Plan
-
In sinus rhythm
Increase Cardizem CD to 180 mg daily
Continue Eliquis for now
Continue treatment of pneumonia
Impression / Plan
-
.
PCP Dr. Huber
Cardiology: Seen by Dr. Carrasco in 2008
Impression:
Admitted with RUL PNA and AE asthma 10/11/2024
Sepsis
Dehydration
Atrial fibrillation/typical flutter with RVR
Paroxysmal atrial fibrillation and flutter seen on outpatient 48-hour Holter monitor 09/29/2024
Prolonged QT, 569 ms by ECG 10/12/2024, suspect inaccurate due to arrhythmia
Depression and anxiety
RLS
GERD
Insomnia
h/o PE 2006
48-hour Holter monitor 09/29/2024: Predominantly NSR, paroxysmal atrial fibrillation and mostly typical atrial flutter with overall 5% burden, no bradycardia
Echo 09/29/2024: EF 60 to 65%, no significant valve disease, small pericardial effusion without evidence of hemodynamic compromise
Plan:
- Feeling much improved from breathing standpoint
- Telemetry reviewed. Currently appears to be in sinus rhythm. Currently on Cardizem CD 120 mg daily
- Blood pressure is elevated. Will increase Cardizem CD to 180 mg daily
- Continue Eliquis for now. As [id number] score of 0, could consider stopping after a month if remains without recurrences.
- Echo with preserved EF
- Continue treatment for pneumonia
- Outpatient EP evaluation to discuss ablation
HPI: Patient came to the ER yesterday with increased SOB and cough with symptoms that had started several days prior and was admitted with PNA and sepsis, cardiology is now consulted for rapid atrial flutter. Patient following with PCP and recently
had outpatient Holter monitor and echo for palpitations and was found to have atrial flutter with a 5% burden. Echo was unremarkable, both studies reviewed by me as outlined above. Earlier today patient with evidence of SVT followed by more clear
rapid atrial flutter on telemetry monitoring. Patient just given Cardizem 10 mg IV x 1 and then started on Cardizem gtt @5. Patient was not taking BB or CCB prior to admission. Patient was not on OAC prior to admission. 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
Subjective
Date of Service: October 14, 2024
Reports breathing is improving
Objective
Labs:
10/14/24 05:09
10/14/24 05:09
Labs
Hgb 12.6 g/dL (12.0-16.0) 10/14/24 05:09
Hct 35.8 % (37.0-47.0) L 10/14/24 05:09
Plt Count 280 10^3/uL (130-400) 10/14/24 05:09
Sodium 145 mmol/L (135-145) 10/14/24 05:09
Potassium 3.7 mmol/L (3.5-5.1) 10/14/24 05:09
BUN 18 mg/dl (7-17) H 10/14/24 05:09
Creatinine 0.7 mg/dL (0.6-1.0) 10/14/24 05:09
Glucose 144 mg/dl (70-99) H 10/14/24 05:09
Vital Signs and I&O:
Vital Signs
Temp Pulse Resp BP Pulse Ox
97.6 F 109 22 170/93 92
10/14/24 11:20 10/14/24 13:16 10/14/24 13:16 10/14/24 10:00 10/14/24 13:37
Vital Signs
Temp Pulse Resp BP Pulse Ox
97.6 F 109 22 170/93 92
10/14/24 11:20 10/14/24 13:16 10/14/24 13:16 10/14/24 10:00 10/14/24 13:37
Intake & Output
10/12/24 10/13/24 10/14/24 10/15/24
07:59 07:59 07:59 07:59
Intake Total 480 / 480 1000 / 1000 1030 / 1030
Output Total 350 / 350 1100 / 1100
Balance 130 / 130 1000 / 1000 -70 / -70
Physical Exam
Physical Exam
GEN: No distress, awake, alert, oriented x3. Sitting in chair. On supplemental O2
HEENT: supple, anicteric, mmm, EOMI
LUNGS: Expiratory wheezes bilaterally
CV: Reg, S1/S2, no murmur
ABD: soft, BS+, NT/ND
EXT: No cyanosis, clubbing. Trace edema of bilateral lower extremity
NEURO: Gross non-focal
SKIN: Warm, pink, dry. No rash
--- NOTE | 2024-10-14 15:44 | CM ---
IV/AB and IV/Steroids. Wean O2, now at 3L. Discharge POC: No therapy eval. May need Home O2 evaluation if unable to wean.
--- NOTE | 2024-10-14 15:53 | PTCARENOTE ---
Rec'd pt this AM. Able to ambulate in hallway with RT. Required 3L NC. OOB to chair and reports feeling better.
[2024-10-14] MEDS: DESYREL 400 MG PO (21:28)
[2024-10-14] MEDS: REQUIP 2 MG PO (21:29)
[2024-10-14] MEDS: PEPCID 20 MG PO (21:29)
[2024-10-14] MEDS: RESTORIL 30 MG PO (21:32)
[2024-10-15] VITALS (9 sets, daily range): BP systolic 128–159; BP diastolic 81–96; BMI 30.2
--- NOTE | 2024-10-15 00:57 | PTCARENOTE ---
Pt on 4L NC. Pt SpO2 hanging at 90%. Sinus tach on the monitor. Pt has a dry frequent cough with some improvement. Pt complaining of a mild headache, PRN Tylenol administered see JUL. Pt ambulating to [facility] with standby assistance. Call mederos within
reach.
[2024-10-15 06:01] LABS: Blood Urea Nitrogen 24 mg/dl (7-17); Calcium 9.5 mg/dl (8.4-10.2); Carbon Dioxide 25 mmol/L (22-30); Chloride 114 mmol/L (98-107); Estimated Creatinine Clearance 94 ml/min; Glucose 142 mg/dl (70-99); Potassium 3.8 mmol/L (3.5-5.1); Sodium 144 mmol/L (135-145); eGFR > 60.00
[2024-10-15 06:06] LABS: Hematocrit 35.7 % (37.0-47.0); Hemoglobin 12.2 g/dL (12.0-16.0); Mean Corp Hgb Conc. 34.2 g/dL (33.0-37.0); Mean Corpuscular Hgb 29.1 pg (27.0-31.0); Mean Corpuscular Volume 85.2 fL (81.0-99.0); Mean Platelet Volume 10.5 fL (7.4-10.4); Platelet Count 302 10^3/uL (130-400); Red Blood Cell Count 4.19 10^6/uL (4.20-5.40); Red Cell Dist. Width 14.6 % (11.5-14.5); White Blood Cell Count 16.4 10^3/uL (4.8-10.8)
[2024-10-15] MEDS: ADVAIR HFA 45/21 MCG INHALER 2 PUFF INH ×2 (07:15→20:35)
[2024-10-15] MEDS: ATROVENT NEBULES 0.5 MG INH ×3 (07:16→20:35)
--- NOTE | 2024-10-15 07:35 | W.PN.HOSP.TC ---
Today's Communication/Plan
-
IV Unasyn with plans to DC on Augmentin/Doxy tomorrow
transfer to tele
IV decadron - transition to prednisone tomorrow
Oral Dilt/Eliquis
Appreciate consultants
expect DC tomorrow
Assessment / Plan
Assessment / Plan
IMPRESSION:
59-year-old woman with past medical history of mild intermittent asthma, depression/anxiety, recent urgent care visit day prior where started on Augmentin/Azithro for PNA presened to the emergency department with progressive cough shortness of
breath and hypoxia. CT chest negative for PE, showed right lower lobe pneumonia consolidation. She was hypoxic to 85% on room air and tachycardic. Hospital course complicated by afib with RVR. Outpatient Holter monitor recently performed with e/o
aflutter.
Chest CT
IMPRESSION:
1. No evidence of pulmonary embolism.
2. Confluent pneumonia in the superior segment right lower lobe. Recommend follow-up imaging after treatment to rule out underlying mass. Infectious/inflammatory bronchiolitis change in the right upper and lower lobes.
CXR 10/13/24
IMPRESSION:
Patchy bilateral parenchymal opacities within the mid to lower lungs, increasing since previous examinations, compatible with increasing bilateral pneumonia.
PLAN:
Pneumonia with sepsis and hypoxia.
Acute Hypoxic Respiratory Failure
- transferred to IMU afternoon of 10/12 for afib with RVR; progressive oxygen needs overnight
- covid and flu tested at urgent care - negative
- legionella and pneumococcal urinary ag negative
- MRSA screen negative
- Cata in sputum culture
- patient was admitted on iV Ceftriaxone/Azithro (changed to Doxy with 2 EKG's reporting prolonged Qtc although may have been misread). 10/13 - braodened to IV Cefepime given increased O2 needs and CXR with progressive PNA; no need for IV Vanc with
negative MRSA screen
-10/15: change IV antibiotics to IV Unasyn with plan to DC on Augmentin tomorrow (patient had only taken 1-2 doses prior to admit)
- repeat CXR results above
- admitted on oral prednisone - transitioned to IV Decadron 10/13; transition back to prednisone on 10/16
- supportive measures with NEBS RTC; albuterol held with afib with RVR
- continue patient's home Wixela
- incentive spirometry
- keep sat > 93%
- appreciate Pulmonary consult - outpatient follow up with Dr. Rodriguez
Atrial Fibrillation with RVR
-outpatient Halter monitor read aflutter
-CHADS2-Vasc score = 1; Eliquis started per discussion with Cardiology
-appreciate cardiology
-started on IV Diltiazem gtt --> transitioned to oral Diltiazem
-TSH WNL
-recent echo: 09/29/24: Normal biventricular size and systolic function without regional wall motion
abnormality. Estimated LVEF 60-65%.
No significant valve disease.
Prolonged QTc read on EKG - this was likely false reading in setting of aflutter. It resolved quickly with rhythm in afib; and remains WNL this morning
-K and Mag OK
Depression/Anxiety
- duloxetine 30 daily
- DIRECTOR OF MEDICAL STAFF SERVICES Gabapentin 300mg TID
- resume Trazodone with normal Qtc again seen
Migraines
-s/p Imitrex
-s/p IV Mag, Compazine and Decadron with improvement
GERD
-DIRECTOR OF MEDICAL STAFF SERVICES PPI daily; pepcid qhs
DVT PPX - lovenox sq
Code status - Full Code
51 minutes spent on patient care
Anticipated Discharge: 24 - 48 hours
Subjective/Interval History
-
Date of Service: October 15, 2024
she is feeling better, asked about timing of discharge
having deeper breaths
oxygen drops with movement then recovers
Objective Data
-
Labs:
Laboratory Results
10/15/24
05:08
WBC 16.4 H
Hgb 12.2
Hct 35.7 L
Plt Count 302
Sodium 144
Potassium 3.8
Chloride 114 H
Carbon Dioxide 25
BUN 24 H
Creatinine 0.7
Glucose 142 H
Calcium 9.5
Vital Signs:
Vital Signs
Temp Pulse Resp BP Pulse Ox
97.9 F 87 16 154/82 95
10/15/24 03:00 10/15/24 07:22 10/15/24 07:22 10/15/24 06:00 10/15/24 07:22
I&O
10/14/24 10/15/24 10/16/24
06:59 06:59 06:59
Intake Total 1030 / 1030 240 / 240
Output Total 1100 / 1100 500 / 500
Balance -70 / -70 -260 / -260
Review of Systems
-
History Source: Patient
All other systems: Reviewed and negative
Physical Exam
-
General: No Apparent Distress and Conversant
HEENT: PERRLA
Respiratory: Wheezes (improved airway movement )
Cardiac: Regular Rhythm and S1/S2
GI: Soft and Nontender
Musculoskeletal: No Edema
Skin: Warm and Dry; Negative Rash
Neuro: AO x 3
Psych: Calm
Data Reviewed
-
Diagnostic Radiology: Report Reviewed by me
Labs: Labs Reviewed by me
[2024-10-15] MEDS: CARDIZEM CD 180 MG PO (08:01)
[2024-10-15] MEDS: VIBRAMYCIN 100 MG PO ×2 (08:01→20:35)
[2024-10-15] MEDS: UNASYN IV ×3 (08:02→20:35)
[2024-10-15] MEDS: NEURONTIN 300 MG PO ×3 (08:02→21:26)
[2024-10-15] MEDS: VISBIOME 1 CAP PO (08:02)
[2024-10-15] MEDS: DECADRON 4 MG IV ×2 (08:02→15:47)
[2024-10-15] MEDS: ELIQUIS 5 MG PO ×2 (08:02→20:35)
[2024-10-15] MEDS: CYMBALTA DELAYED RELEASE 30 MG PO (08:02)
[2024-10-15] MEDS: PROTONIX 40 MG PO (08:02)
[2024-10-15] MEDS: MUCINEX 600 MG PO ×2 (08:02→20:35)
--- NOTE | 2024-10-15 08:10 | PTCARENOTE ---
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 Patient resting comfortably in bed. AAO, VSS. No events noted overnight. No complaints of pain at this time. No fluids through IV. Downgrade today. Continue ABX and steroids. No testing scheduled at this
time. Call mederos in reach.
--- NOTE | 2024-10-15 09:59 | PTCARENOTE ---
Report called to [facility]
--- NOTE | 2024-10-15 10:47 | PTCARENOTE ---
Pt arrived via wheel chair, on 3LNC able to ambulate self to SS and then bed. VS obtain given call mederos and orientation to room.
[2024-10-15] MEDS: DUONEB 3 ML INH (11:26)
[2024-10-15 12:47] LABS: % Basophils 0.4 % (0-2); % Eosinophils 0.1 % (0-6); % Immature Granulocytes 5.2 % (0-0.5); % Lymphocytes 7.5 % (20.5-51.1); % Monocytes 3.9 % (1.7-9.3); % Neutrophils 82.9 % (42.2-75.2); Absolute Basophils 0.1 10^3/uL (0-0.2); Absolute Immature Granulocytes 0.9 10^3/uL (0-0.05); Absolute Lymphocytes 1.2 10^3/uL (1.2-3.4); Absolute Monocytes 0.6 10^3/uL (0.1-0.6); Absolute Neutrophils 13.6 10^3/uL (1.4-6.5); Nucleated Red Blood Cells % 0 %
[2024-10-15] MEDS: TYLENOL 650 MG PO (15:55)
--- NOTE | 2024-10-15 16:55 | W.PN.PUL3 ---
Today's Communication / Plan
-
Continue weaning down supplemental O2 rate as tolerated while keeping saturations >90-94%
Home O2 assessment prior to discharge
Continue abx, mucus clearance techniques
OOB, PT/OT
Encouraged IS use
Nebulized Atrovent + albuterol (low-dose to avoid tachycardia); case management consult to get her nebulizers at home
OP FU to be arranged
Assessment
-
Patient is a 59-year-old with past medical history of mild asthma, sleep apnea, GERD, anxiety/depression presenting to the emergency department with worsening shortness of breath and cough. Patient developed sore throat about 5 days ago. She was
seen in the emergency department for wheezing and coughing about 2 days ago and was prescribed Augmentin, azithromycin and prednisone. Reported ulse oximetry at home was noted to be 85% on RA (filiberto). In the emergency department today she was
afebrile with a temp of 98.5. Blood pressure was 120/68 and pulse rate of 126. Oxygen saturation was 91% on room air. Chest x-ray shows no acute interval changes with suggestion of left basilar atelectasis and/or pneumonia. Patient had a CT PE
study which was negative for PE. He however did show pneumonia consolidation in the medial aspect of the superior segment of the right lower lobe.
RLL PNA
SOB/cough
Acute hypoxic respiratory failure, 85% on RA at home, placed on 6-8L,now on 3L/min here
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
GERD
PTSD
Complex regional pain syndrome type 1, affecting unspecified site
Recurrent major depressive disorder
s/p ECT treatments
She had several inpatient psychiatric admissions for suicidal ideations and attempts since 1988
Prior suicide attempt with self-evisceration with a knife 2016, has tried Rx overdoses in past as well
History of 302 commitments
Obesity, BMI 30
Nocturnal Hypoxemia w/o OSAS- HST 08/25/24: AHI 1.1, Nocturnal hypoxemia noted-38% on study below 90%, 1L needed to maintain sat >90%
Migraine without status migrainosus, not intractable
Mild intermittent asthma without complication
Paresthesia of arm
Irritable bowel syndrome
Generalized anxiety disorder
Memory loss
Fibromyalgia
Mixed hyperlipidemia
Myalgia
Plan
Hypoxemia noted on arrival, she is on 8L--weaned to 3L today (6L/min yesterday)
There is no known history of O2 use at home
Eventual home O2 eval prior to discharge
Continue with nebulized bronchodilators TID - -> given that she can become tachycardic, would continue with nebulized Atrovent and I will add a low-dose albuterol, both TID; she is interested in getting these for home use. I will consult case
management
There is known prior history of lung disease including asthma, nocturnal hypoxemia (HST neg for OSAS)
She likely has bibasilar atelectasis contributing to hypoxemia
Encouraged IS, OOB
She feels that her SOB is improving every day
Cough noted, productive
Sputum culture with cata
She is placed on empiric abx; currently on doxycycline and previously on cefepime and had previosuly been on ceftriaxone, Zithromax and vancomycin (not all at same time-refer to [facility] for details)
Continue airway clearance measures
CXR/CT obtained indicating RLL infiltrate
Other imaging reviewed
ECHO results in past reviewed, normal function
Diuresis--no indication
Will need outpatient pulmonary evaluation in our office including PFTs and 6MWT
Reviewed with patient
She will need FU for her nocturnal hypoxemia, has POC at home
Obesity likely contributing to respiratory symptoms as well
Weight loss measures recommended
Has O2 at home, but likely will need improvement to 3-4L NC to safely d/c
Diagnostic Data
CXR 10/13/24- Patchy bilateral parenchymal opacities within the mid to lower lungs, increasing since previous examinations, compatible with increasing bilateral pneumonia.
CT CHEST 10/11/24- 1. No evidence of pulmonary embolism.
2. Confluent pneumonia in the superior segment right lower lobe. Recommend follow-up imaging after treatment to rule out underlying mass. Infectious/inflammatory bronchiolitis change in the right upper and lower lobes.
ECHO 09/29/24- Normal biventricular size and systolic function without regional wall motion abnormality. Estimated LVEF 60-65%. No significant valve disease. Small pericardial effusion without evidence of hemodynamic compromise. Compared to 03/12/23:
no significant change.
PFT
Reports and relevant images were personally reviewed.
-----
Total time spent on this consultation _37__ minutes which includes review of history, physical exam, medications, llaboratory data, personal review of imaging, extensive review of outpatient records, and discussions with care team.
Subjective Data
-
Date of Service:
Date of Service: October 15, 2024
Chief Complaint: Pulmonary Follow Up
Subjective:
Patient seen and evaluated today (late note entry). She says she feels much better today overall. Still coughing which is mostly dry unless she gets the nebulizer then she has yellow/green phlegm production. The nebulizers are helping her
breathing much better and she is interested in getting a nebulizer machine with the medications for home use. Currently denies chest pain, and she has been getting mild shortness of breath with exertion.
Review of Systems
General: Other (Negative unless mentioned above)
Objective Data
Data Reviewed
Vital Signs / I&O / Oxygen:
Vital Signs
Temp Pulse Resp BP Pulse Ox
98.4 F 92 20 136/87 93
10/15/24 07:00 10/15/24 10:41 10/15/24 10:41 10/15/24 10:41 10/15/24 10:41
Intake and Output
10/14/24 10/15/24 10/16/24
06:59 06:59 06:59
Intake Total 1030 / 1030 240 / 240
Output Total 1100 / 1100 500 / 500
Balance -70 / -70 -260 / -260
SaO2 93
Nasal Cannula flow liters per 3
minute
Physical Exam
General: Respiratory Distress (mild), Comfortable and Other (NAD, pleasant mood)
HEENT: Normocephalic, Anicteric and Moist Mucous Membranes
Cardiovascular: S1-S2 and Peripheral Edema (n)
Respiratory: Wheeze (n), Crackles (bibasilar), Rhonchi (Right base), Non-Labored Respirations and Other (Bubbling heard upon inspiration of the right base)
GI: Soft, Non Distended and Non Tender
Neurology: Awake, Alert, Oriented and Tremors (n)
Skin: Warm, Dry and Good Color
Labs/Micro/Reports
Lab Data
10/15/24 05:08
10/15/24 05:08
Microbiology
10/11/24 17:20 Blood/Venous Blood Culture - Preliminary
No Growth in 72 hours- Final report to follow
10/11/24 17:20 Blood/Venous Blood Culture - Preliminary
No Growth in 72 hours- Final report to follow
10/12/24 13:04 Sputum Respiratory Culture - Final
Cata albicans
10/12/24 13:04 Sputum Gram Stain - Final
10/11/24 22:23 Nose MRSA Screen - Final
No Methicillin Resistant Staphylococcus aureus isolated.
10/12/24 13:02 Feces/Stool C. difficile GDH Antigen & Toxins - Final
Negative for toxigenic C.difficile
10/12/24 05:56 Urine Legionella Urinary Antigen - Final
Negative for Legionella pneumophila Serogroup 1 antigen.
A negative result does not rule out the possiblity of
Legionella infection due to other serogroups or species of
Legionella. Clinical correlation is recommended.
10/12/24 05:56 Urine Streptococcus pneumoniae Antigen (M - Final
Negative for Streptococcus pneumoniae antigen.
A negative result does not exclude infection with
Streptococcus pneumoniae. Clinical correlation is
recommended.
[2024-10-15] MEDS: RESTORIL 30 MG PO (21:26)
[2024-10-15] MEDS: DESYREL 400 MG PO (21:26)
[2024-10-15] MEDS: REQUIP 2 MG PO (21:26)
[2024-10-15] MEDS: PEPCID 20 MG PO (21:26)
[2024-10-16] MEDS: UNASYN IV (02:08)
[2024-10-16 03:15] VITALS: BP 136/81
[2024-10-16 07:15] VITALS: BP 152/84
[2024-10-16] MEDS: ROBITUSSIN 200 MG PO (07:42)
[2024-10-16] MEDS: ELIQUIS 5 MG PO (07:56)
[2024-10-16] MEDS: PROTONIX 40 MG PO (07:56)
[2024-10-16] MEDS: NEURONTIN 300 MG PO (07:56)
[2024-10-16] MEDS: VISBIOME 1 CAP PO (07:57)
[2024-10-16] MEDS: AUGMENTIN 875 MG/125 MG 1 TABLET PO (07:57)
[2024-10-16] MEDS: CARDIZEM CD 180 MG PO (07:57)
[2024-10-16] MEDS: MUCINEX 600 MG PO (07:57)
[2024-10-16] MEDS: VIBRAMYCIN 100 MG PO (07:57)
[2024-10-16] MEDS: CYMBALTA DELAYED RELEASE 30 MG PO (07:57)
[2024-10-16] MEDS: DELTASONE 40 MG PO (07:57)
[2024-10-16] MEDS: ATROVENT NEBULES 0.5 MG INH (08:23)
[2024-10-16] MEDS: VENTOLIN NEBULES 1.25 MG INH (08:23)
[2024-10-16] MEDS: ADVAIR HFA 45/21 MCG INHALER 2 PUFF INH (08:24)
--- NOTE | 2024-10-16 09:04 | W.PN.PUL3 ---
Today's Communication / Plan
-
Home O2 assessment performed today shows that she does not need home oxygen (walked 300 feet with filiberto SpO2 90%)
Continue abx, mucus clearance techniques
OOB, PT/OT
Encouraged IS use
Nebulized Atrovent + albuterol (low-dose to avoid tachycardia); case management consulted to get her nebulizers at home which will be beneficial to the pt given her chronic lung disease now with PNA
Patient is being prepared for discharge home today. Outpatient pulmonary follow-up will be arranged. No additional recommendations at this time. Pulmonary service will now sign off. Please reconsult if there are any additional questions/concerns,
or if patient's respiratory status deteriorates.
Assessment
-
Patient is a 59-year-old with past medical history of mild asthma, sleep apnea, GERD, anxiety/depression presenting to the emergency department with worsening shortness of breath and cough. Patient developed sore throat about 5 days ago. She was
seen in the emergency department for wheezing and coughing about 2 days ago and was prescribed Augmentin, azithromycin and prednisone. Reported ulse oximetry at home was noted to be 85% on RA (filiberto). In the emergency department today she was
afebrile with a temp of 98.5. Blood pressure was 120/68 and pulse rate of 126. Oxygen saturation was 91% on room air. Chest x-ray shows no acute interval changes with suggestion of left basilar atelectasis and/or pneumonia. Patient had a CT PE
study which was negative for PE. He however did show pneumonia consolidation in the medial aspect of the superior segment of the right lower lobe.
RLL PNA
SOB/cough
Acute hypoxic respiratory failure, 85% on RA at home, placed on 6-8L,now on room air here
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
GERD
PTSD
Complex regional pain syndrome type 1, affecting unspecified site
Recurrent major depressive disorder
s/p ECT treatments
She had several inpatient psychiatric admissions for suicidal ideations and attempts since 1988
Prior suicide attempt with self-evisceration with a knife 2017, has tried Rx overdoses in past as well
History of 302 commitments
Obesity, BMI 30
Nocturnal Hypoxemia w/o OSAS- HST 08/25/24: AHI 1.1, Nocturnal hypoxemia noted-38% on study below 90%, 1L needed to maintain sat >90%
Migraine without status migrainosus, not intractable
Mild intermittent asthma without complication
Paresthesia of arm
Irritable bowel syndrome
Generalized anxiety disorder
Memory loss
Fibromyalgia
Mixed hyperlipidemia
Myalgia
Plan
Hypoxemia noted on arrival, she is on 8L--weaned to room air today from 3L yesterday, and 6L/min the before that
There is no known history of O2 use at home
Home O2 assessment performed today showed she does not need home oxygen as she was saturating 92% at rest on room air and filiberto SaO2 was 90% with ambulation (walked total of 300 feet)
Continue with nebulized bronchodilators TID - -> given that she can become tachycardic, would continue with nebulized Atrovent and I added a low-dose albuterol, both TID; she is interested in getting these for home use. I consulted case management
yesterday
Nebulizers are needed given her acute right lower lobe pneumonia in the setting of asthma with acute exacerbation as the nebulizer will be of great benefit to her to improve quality of life, help prevent dyspnea on exertion and prevent her from
rehospitalization
There is known prior history of lung disease including asthma, nocturnal hypoxemia (HST neg for OSAS)
She likely has bibasilar atelectasis contributing to hypoxemia
Encouraged IS, OOB
She feels that her SOB has been improving every day
Cough noted, productive
Sputum culture with cata
She is placed on empiric abx; currently on doxycycline and previously on cefepime and had previosuly been on ceftriaxone, Zithromax and vancomycin (not all at same time-refer to [employer] for details)
Continue airway clearance measures
CXR/CT obtained indicating RLL infiltrate
Other imaging reviewed
Recommend repeating CXR in 4-6 weeks to assure that there is right lower lobe pneumonia has resolved/improved
ECHO results in past reviewed, normal function
Diuresis--no indication
Will need outpatient pulmonary evaluation in our office including PFTs and 6MWT
Reviewed with patient
She will need FU for her nocturnal hypoxemia, has POC at home
Obesity likely contributing to respiratory symptoms as well
Weight loss measures recommended
Has O2 at home; home O2 assessment performed today shows that she does not need home oxygen (walked 300 feet with filiberto SpO2 90%)
Patient is being prepared for discharge home today. Outpatient pulmonary follow-up will be arranged. No additional recommendations at this time. Pulmonary service will now sign off. Thank you for allowing us to be involved in the care of this
patient. Please reconsult if there are any additional questions/concerns, or if patient's respiratory status deteriorates.
Diagnostic Data
CXR 10/13/24- Patchy bilateral parenchymal opacities within the mid to lower lungs, increasing since previous examinations, compatible with increasing bilateral pneumonia.
CT CHEST 10/11/24- 1. No evidence of pulmonary embolism.
2. Confluent pneumonia in the superior segment right lower lobe. Recommend follow-up imaging after treatment to rule out underlying mass. Infectious/inflammatory bronchiolitis change in the right upper and lower lobes.
ECHO 09/29/24- Normal biventricular size and systolic function without regional wall motion abnormality. Estimated LVEF 60-65%. No significant valve disease. Small pericardial effusion without evidence of hemodynamic compromise. Compared to 03/12/23:
no significant change.
PFT
Reports and relevant images were personally reviewed.
-----
Total time spent on this consultation _41__ minutes which includes review of history, physical exam, medications, llaboratory data, personal review of imaging, extensive review of outpatient records, and discussions with care team.
Subjective Data
-
Date of Service:
Date of Service: October 16, 2024
Chief Complaint: Pulmonary Follow Up
Subjective:
Patient seen and evaluated this morning. She feels well, shortness of breath markedly improved. Currently on room air breathing comfortably. She is eager to go home. She denies nausea/vomiting/fevers/chills, or chest pain.
Review of Systems
General: Other (Negative unless mentioned above)
Objective Data
Data Reviewed
Vital Signs / I&O / Oxygen:
Vital Signs
Temp Pulse Resp BP Pulse Ox
98.1 F 74 16 152/84 95
10/16/24 07:15 10/16/24 08:54 10/16/24 08:54 10/16/24 07:57 10/16/24 08:54
Intake and Output
10/15/24 10/16/24 10/17/24
06:59 06:59 06:59
Intake Total 240 / 240 1320 / 1320
Output Total 500 / 500
Balance -260 / -260 1320 / 1320
SaO2 95
Nasal Cannula flow liters per 2.5
minute
Physical Exam
General: Respiratory Distress (mild), Comfortable and Other (NAD, pleasant mood)
HEENT: Normocephalic, Anicteric and Moist Mucous Membranes
Cardiovascular: S1-S2 and Peripheral Edema (n)
Respiratory: Wheeze (n), Crackles (bibasilar), Rhonchi (Right base), Non-Labored Respirations and Other (Bubbling heard upon inspiration of the right base)
GI: Soft, Non Distended and Non Tender
Neurology: Awake, Alert, Oriented and Tremors (n)
Skin: Warm, Dry and Good Color
Labs/Micro/Reports
Lab Data
10/15/24 05:08
10/15/24 05:08
Microbiology
10/11/24 17:20 Blood/Venous Blood Culture - Preliminary
No Growth in 4 days- Final report to follow
10/11/24 17:20 Blood/Venous Blood Culture - Preliminary
No Growth in 4 days- Final report to follow
10/12/24 13:04 Sputum Respiratory Culture - Final
Cata albicans
10/12/24 13:04 Sputum Gram Stain - Final
10/11/24 22:23 Nose MRSA Screen - Final
No Methicillin Resistant Staphylococcus aureus isolated.
--- NOTE | 2024-10-16 09:12 | W.PN.HOSP.TC ---
Addendum entered and electronically signed by Lana Cardenas MD 10/16/24 09:44:
Patient needs a nebulizer due to chronic lung disease.
Original Note:
Today's Communication/Plan
-
OK for DC today
Assessment / Plan
Assessment / Plan
IMPRESSION:
59-year-old woman with past medical history of mild intermittent asthma, depression/anxiety, recent urgent care visit day prior where started on Augmentin/Azithro for PNA presened to the emergency department with progressive cough shortness of
breath and hypoxia. CT chest negative for PE, showed right lower lobe pneumonia consolidation. She was hypoxic to 85% on room air and tachycardic. Hospital course complicated by afib with RVR. Outpatient Holter monitor recently performed with e/o
aflutter.
Chest CT
IMPRESSION:
1. No evidence of pulmonary embolism.
2. Confluent pneumonia in the superior segment right lower lobe. Recommend follow-up imaging after treatment to rule out underlying mass. Infectious/inflammatory bronchiolitis change in the right upper and lower lobes.
CXR 10/13/24
IMPRESSION:
Patchy bilateral parenchymal opacities within the mid to lower lungs, increasing since previous examinations, compatible with increasing bilateral pneumonia.
PLAN:
Pneumonia with sepsis and hypoxia.
Acute Hypoxic Respiratory Failure
- covid and flu tested at urgent care - negative
- legionella and pneumococcal urinary ag negative
- MRSA screen negative
- Cata in sputum culture
- transferred to IMU afternoon of 10/12 for afib with RVR; progressive oxygen needs overnight
- patient was admitted on iV Ceftriaxone/Azithro (changed to Doxy with 2 EKG's reporting prolonged Qtc although may have been misread). 10/13 - braodened to IV Cefepime given increased O2 needs and CXR with progressive PNA; no need for IV Vanc with
negative MRSA screen
-10/15: change IV antibiotics to IV Unasyn with plan to DC on Augmentin today
- repeat CXR results above
- admitted on oral prednisone - transitioned to IV Decadron 10/13; transition back to prednisone on 10/16
- supportive measures with NEBS RTC; albuterol held with afib with RVR - lower dose ordered
- continue patient's home Wixela
- incentive spirometry
- keep sat > 93%
- appreciate Pulmonary consult - outpatient follow up with Dr. Rodriguez
Atrial Fibrillation with RVR
-outpatient Halter monitor read aflutter
-CHADS2-Vasc score = 1; Eliquis started per discussion with Cardiology
-appreciate cardiology
-started on IV Diltiazem gtt --> transitioned to oral Diltiazem
-TSH WNL
-recent echo: 09/29/24: Normal biventricular size and systolic function without regional wall motion
abnormality. Estimated LVEF 60-65%.
No significant valve disease.
Prolonged QTc read on EKG - this was likely false reading in setting of aflutter. It resolved quickly with rhythm in afib; and remains WNL this morning
-K and Mag OK
Depression/Anxiety
- duloxetine 30 daily
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
- resume Trazodone with normal Qtc again seen
Migraines
-s/p Imitrex
-s/p IV Mag, Compazine and Decadron with improvement
GERD
-MUD JACK NOZZLEMAN PPI daily; pepcid qhs
DVT PPX - lovenox sq
Code status - Full Code
51 minutes spent on patient care
Anticipated Discharge: Today
Subjective/Interval History
-
Date of Service: October 16, 2024
she is feeling much better
on room air
ready to go home
Objective Data
-
Vital Signs:
Vital Signs
Temp Pulse Resp BP Pulse Ox
98.1 F 74 16 152/84 95
10/16/24 07:15 10/16/24 08:54 10/16/24 08:54 06/15/25 07:57 10/16/24 08:54
I&O
10/15/24 10/16/24 10/17/24
06:59 06:59 06:59
Intake Total 240 / 240 1320 / 1320
Output Total 500 / 500
Balance -260 / -260 1320 / 1320
Review of Systems
-
History Source: Patient
All other systems: Reviewed and negative
Physical Exam
-
General: No Apparent Distress and Conversant
HEENT: PERRLA
Respiratory: Wheezes (improved airway movement )
Cardiac: Regular Rhythm and S1/S2
GI: Soft and Nontender
Musculoskeletal: No Edema
Skin: Warm and Dry; Negative Rash
Neuro: AO x 3
Psych: Calm
Data Reviewed
-
Diagnostic Radiology: Report Reviewed by me
Labs: Labs Reviewed by me
--- NOTE | 2024-10-16 09:46 | W.DS.TRANS ---
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
-
Discharge Instructions:
Discharge Diagnosis/Procedures community acquired pneumonia, asthma
exacerbation
Diet Regular
Activity As tolerated
Driving Restrictions As prior to admission
Bathing Restrictions None
Instructions:
Stand-Alone Forms:
Changes to Home Medications: Yes
Discharge Medications:
DC Medications w/original date entered in [employer]
cyanocobalamin (vitamin B-12) 1,000 mcg tablet 1,000 mcg PO DAILY 11/12/17
ketamine 100 mg/mL injection solution 150 mg IV MONTHLY Depression 04/16/22
trazodone 100 mg tablet 400 mg PO HS Sleep 04/16/22
albuterol sulfate 90 mcg/actuation aerosol inhaler 2 puff inhalation Q6H PRN shortness of breath 10/12/24
carisoprodol 350 mg tablet 350 mg PO BIDPRN PRN muscle spasm 10/12/24
cholecalciferol (vitamin D3) 25 mcg (1,000 unit) tablet (Vitamin D3) 25 mcg PO DAILY 10/12/24
dextroamphetamine-amphetamine ER 20 mg 24hr capsule,extend release (Adderall XR) 20 mg PO DAILYPRN PRN WORK 10/12/24
duloxetine 30 mg capsule,delayed release 30 mg PO DAILY 10/12/24
eptinezumab-jjmr 100 mg/mL intravenous solution (Vyepti) 1 mg IV [id number] migraine prevention 10/12/24
famotidine 40 mg tablet 40 mg PO HS Gastrointestinal Issue 10/12/24
fluticasone 100 mcg-salmeterol 50 mcg/dose blistr powdr for inhalation (Wixela Inhub) 1 inh inhalation BID 10/12/24
gabapentin 300 mg capsule 300 mg PO TID 10/12/24
omeprazole 40 mg capsule,delayed release 40 mg PO DAILY 10/12/24
onabotulinumtoxinA 100 unit solution for injection (Botox) 200 unit IM [id number] migraines 10/12/24
rimegepant 75 mg disintegrating tablet (Nurtec ODT) 75 mg PO DAILYPRN PRN migraine 10/12/24
ropinirole 2 mg tablet 2 mg PO HS restless leg 10/12/24
temazepam 30 mg capsule 30 mg PO HS Sleep 10/12/24
albuterol sulfate 1.25 mg/3 mL solution for nebulization 1.25 mg (3 mL) inhalation R TID PRN wheezing #75 mL 10/16/24
amoxicillin 875 mg-potassium clavulanate 125 mg tablet 1 tab PO Q12 #5 tabs 10/16/24
apixaban 5 mg tablet (Eliquis) 5 mg PO BID #60 tabs 10/16/24
diltiazem HCl 180 mg capsule,extended release 24 hr 180 mg PO DAILY #30 caps 10/16/24
doxycycline hyclate 100 mg capsule 100 mg PO Q12 #3 caps 10/16/24
guaifenesin 600 mg tablet, extended release 12 hr 600 mg PO Q12 #14 tabs 10/16/24
ipratropium bromide 0.02 % solution for inhalation 0.5 mg (2.5 mL) inhalation R TID PRN wheezing #62.5 mL 10/16/24
prednisone 10 mg tablet 10 mg PO DIRECTED #20 tabs 10/16/24
Home Medication Changes
Take Prednisone taper as prescribed:
40mg (4 tabs) x 2 days; 30mg(3 tabs) x 2 days; 20mg(2 tabs) x 2 days; 10mg (1 tab) x 2 days
Take albuterol + Ipratropium nebulizers 3x/day for next several days then as needed
You have 1.5 more days of Doxycycline and 2.5 more days of Augmentin to complete your antibiotic course.
You may take a probiotic over the counter; and can take Imodium as needed for diarrhea
For new diagnosis of atrial fibrillation, you are started on Diltiazem to control heart rate and Eliquis for stroke prevention. You will follow up closely with Cardiology (appointment on 11/01).
Continue Omeprazole to help protect lining of your stomach while on Eliquis (especially with addition of steroid course)
Pending Results: No
--- NOTE | 2024-10-16 10:25 | CM ---
CM following re: discharge planning.
Reviewed pt's chart, met with pt.
Discharge order noted. Pt is aware, expressed her agreement with discharge and pt stated her sister will transport home. IMM reviewed, placed on chart, pt has a copy.
Per MD pt needs home O2 and nebulizer. Pt stated she has nocturnal Oxygen and she uses it at night. Pt stated she does not need portable O2 tank. pt agrees to have nebulizer. CM placed an order for nebulizer machine and treatment with [facility] and
pt's clinical with a script faxed to [facility] at [phone]. CM spoke to [facility] liaison Melissa and she confirmed that nebulizer machine will be delivered to pt's home today.
D/C plan: home with nebulizer machine and family support. Sister to transport.
[2024-10-16 11:55] VITALS: BP 143/78
--- NOTE | 2024-10-16 15:33 | W.DCSUMMARY ---
Discharge Summary
Discharge Data
Date of Admission: 10/11/24
Date of Discharge: 10/16/24
-
Pending Results: No
Hospital Course
Discharging Physician : Dr. Lana Cardenas
Disposition : Home
Primary care physician : Dr. Gordy Huber
Principal Discharge diagnosis : Bilateral pneumonia, acute asthma exacerbation
Hospital Course :
Ms. Eleonora Johnson is a 59 yo woman with history mild intermittent asthma, anxiety/depression, recent urgent care day prior for pneumonia started on Augmentin/Doxy presents to the ER with worsening shortness of breath. She was found to be hypoxic
to 85% on room air. Chest CT with evidence of right lower lobe pneumonia. She was admitted to medicine, initially started on treatment for CAP with Ceftriaxone/Azithromycin.
Hospital course complicated by increasing oxygen needs and CXR showing worsening pneumonia on 10/13. At this point antibiotics were broadened to Cefepime. Her antibiotics were changed to Unasyn/Doxy prior to discharge. She remained with clinical
improvement and is discharged to complete the course of Augmentin/Doxy. Patient only took 1-2 doses of Augmentin prior to admission therefore this was not treatment failure.
She is s/p Decadron in the hospital and discharged on a Prednisone taper, nebs with outpatient Pulmonary follow up.
Patient with afib with RVR afternoon of hospital day 1. She had just had a Halter monitor which showed new aflutter. She was started on an IV Diltiazem gtt, Cardiology was consulted. She was transitioned to oral Diltiazem and was in sinus rhythm
at discharge. She will follow up as outpatient with Cardiology, ablation option to be discussed. She is started on Eliquis after risks/benefits discussion had with Cardiology.
Of note, one EKG showed prolonged QTc but this was likely false read in setting of flutter, repeat WNL. Therefore, her home Trazodone is continued.
Patient will follow up with her PCP, Cardiology and Pulmonary.
Time spent on discharge was 35 minutes.
Important imaging findings :
Chest CT 10/11/24
IMPRESSION:
1. No evidence of pulmonary embolism.
2. Confluent pneumonia in the superior segment right lower lobe. Recommend follow-up imaging after treatment to rule out underlying mass. Infectious/inflammatory bronchiolitis change in the right upper and lower lobes.
CXR 10/13/24
IMPRESSION:
Patchy bilateral parenchymal opacities within the mid to lower lungs, increasing since previous examinations, compatible with increasing bilateral pneumonia.
Procedure findings :
Discharge Plan
-
Patient Disposition: Home (Routine Discharge)
Discharge Diagnosis/Procedures: community acquired pneumonia, asthma exacerbation
Diet: Regular
Activity: As tolerated
Driving Restrictions: As prior to admission
Bathing Restrictions: None
Referrals:
Johana Alvarez DO [Active, Pulmonary Medicine] - in two to three weeks
Referral Note: PFT, 6MWT
Jan Rodriguez MD [Active, Pulmonary Medicine] - 10/20/24
Gordy Huber MD [Family Provider, Internal Medicine] - in less than 1 week
Kerry Reilly CRNP [Specified Professional Personl, Cardiology] - 11/01/24 3:40 pm
Referral Note: You have a cardiology follow-up at the [place] office. Please call with questions
Additional Discharge Medication Instructions: Take Prednisone taper as prescribed:
40mg (4 tabs) x 2 days; 30mg(3 tabs) x 2 days; 20mg(2 tabs) x 2 days; 10mg (1 tab) x 2 days
Take albuterol + Ipratropium nebulizers 3x/day for next several days then as needed
You have 1.5 more days of Doxycycline and 2.5 more days of Augmentin to complete your antibiotic course.
You may take a probiotic over the counter; and can take Imodium as needed for diarrhea
For new diagnosis of atrial fibrillation, you are started on Diltiazem to control heart rate and Eliquis for stroke prevention. You will follow up closely with Cardiology (appointment on 11/01).
Continue Omeprazole to help protect lining of your stomach while on Eliquis (especially with addition of steroid course)
Doxycycline Precautions
�� Take with at least 6 oz H2O
�� Take with food but no calcium containing products like milk or cheese
�� Ideally you would not take any multivitamins, calcium, magnesium or zinc containing products.
�� If you must take one of these products make sure that the pills are by at least 3 hours.
�� Sit up for at least 30 minutes after each dose to prevent heartburn.
�� Your skin will be more sensitive to the sun while you are on doxycycline - it will be very easy for you to get a sunburn -- please WEAR SUNSCREEN while on Doxycycline and for a week following.
Prescriptions:
New
ipratropium bromide 0.02 % Solution
0.5 mg inhalation R TID PRN (Reason: wheezing) Qty: 62.5 0RF
amoxicillin-pot clavulanate 875-125 mg Tablet
1 tab PO Q12 Qty: 5 0RF
diltiazem HCl 180 mg Capsule,Extended Release 24hr
180 mg PO DAILY Qty: 30 0RF
Eliquis 5 mg Tablet
5 mg PO BID Qty: 60 0RF
guaifenesin 600 mg Tablet Extended Release 12hr
600 mg PO Q12 Qty: 14 0RF
albuterol sulfate 1.25 mg/3 mL Solution For Nebulization
1.25 mg inhalation R TID PRN (Reason: wheezing) Qty: 75 0RF
doxycycline hyclate 100 mg Capsule
100 mg PO Q12 Qty: 3 0RF
prednisone 10 mg tablet
10 mg PO DIRECTED Qty: 20 0RF
Rx Instructions:
Take 40mg (4 tabs) x 2 days; 30mg(3 tabs) x 2 days; 20mg(2 tabs) x 2 days; 10mg (1 tab) x 2 days
Continued
cyanocobalamin (vitamin B-12) 1,000 MCG tablet
1,000 mcg PO DAILY 0RF
ketamine 100 mg/mL Solution
150 mg IV MONTHLY
Rx Instructions:
trevose pain and spine
trazodone 100 MG tablet
400 mg PO HS
Botox 100 unit Recon Soln
200 unit IM [id number]
famotidine 40 mg Tablet
40 mg PO HS
omeprazole 40 mg Capsule,Delayed Release(Dr/Ec)
40 mg PO DAILY
dextroamphetamine-amphetamine [Adderall XR] 20 mg Capsule,Extended Release 24hr
20 mg PO DAILYPRN PRN (Reason: WORK)
temazepam 30 mg Capsule
30 mg PO HS
ropinirole 2 mg Tablet
2 mg PO HS
gabapentin 300 mg Capsule
300 mg PO TID
fluticasone propion-salmeterol [Wixela Inhub] 100-50 mcg/dose Blister With Device
1 inh INHALATION BID
albuterol sulfate 90 mcg/actuation Hfa Aerosol Inhaler
2 puff INHALATION Q6H PRN (Reason: shortness of breath)
duloxetine 30 mg Capsule,Delayed Release(Dr/Ec)
30 mg PO DAILY
cholecalciferol (vitamin D3) [Vitamin D3] 25 mcg (1,000 unit) Tablet
25 mcg PO DAILY
Vyepti 100 mg/mL Solution
1 mg IV [id number]
Nurtec ODT 75 mg Tablet,Disintegrating
75 mg PO DAILYPRN PRN (Reason: migraine)
carisoprodol 350 mg tablet
350 mg PO BIDPRN PRN (Reason: muscle spasm)
Discharge Orders:
Discharge Patient (As Directed); Ordered 10/16/24
Ordered By: Lana Cardenas
Discharge Date and Time
Discharge Date/Time: 10/16/24 13:43
Print Language: CROATIAN
== END 2024-10-16 13:43 | disposition home or self-care (01) | DRG 871 ==
LOC: 2 NORTH 22:05
PROVIDERS: Physician Assistant; ADMITTING PHYSICIAN Internal Medicine; ATTENDING PHYSICIAN Student in an Organized Health Care Education/Training Program; CONSULT PHYSICIAN Internal Medicine; EMERGENCY PHYSICIAN Emergency Medicine; FAMILY PHYSICIAN Internal Medicine Geriatric Medicine; OTHER PHYSICIAN Nuclear Medicine Nuclear Cardiology
DX: A41.9 Sepsis, unspecified organism (principal); J18.9 Pneumonia, unspecified organism; J96.01 Acute respiratory failure with hypoxia; F33.9 Major depressive disorder, recurrent, unspecified; J45.21 Mild intermittent asthma with (acute) exacerbation; I31.39 Other pericardial effusion (noninflammatory); I48.3 Typical atrial flutter; J98.11 Atelectasis; J21.9 Acute bronchiolitis, unspecified; B37.89 Other sites of candidiasis; R11.10 Vomiting, unspecified; K21.9 Gastro-esophageal reflux disease without esophagitis; G47.30 Sleep apnea, unspecified; M79.7 Fibromyalgia; K58.9 Irritable bowel syndrome, unspecified; F43.10 Post-traumatic stress disorder, unspecified; G43.909 Migraine, unspecified, not intractable, without status migrainosus; M54.50 Low back pain, unspecified; E86.0 Dehydration; G47.00 Insomnia, unspecified; G25.81 Restless legs syndrome; I48.0 Paroxysmal atrial fibrillation; J98.4 Other disorders of lung; E66.9 Obesity, unspecified; G89.29 Other chronic pain; E78.2 Mixed hyperlipidemia; R41.3 Other amnesia; F41.1 Generalized anxiety disorder; Z60.2 Problems related to living alone; Z86.711 Personal history of pulmonary embolism; Z86.718 Personal history of other venous thrombosis and embolism; Z90.49 Acquired absence of other specified parts of digestive tract; Z88.8 Allergy status to other drugs, medicaments and biological substances; Z91.030 Bee allergy status; Z79.52 Long term (current) use of systemic steroids; Z82.49 Family history of ischemic heart disease and other diseases of the circulatory system; Z82.3 Family history of stroke; Z68.30 Body mass index [BMI] 30.0-30.9, adult; Z91.51 Personal history of suicidal behavior
CPT/HCPCS: 71045; 71046; 71275; 80048; 80053; 83605; 83735; 84443; 85025; 85027; 87040; 87070; 87205; 87324; 87449; 87899; 93005; 94640; 96360; 96374; 96375; 99284; 99285; Q9967

== ENCOUNTER → 2024-10-19 12:40 | Outpatient (REF) | payer MEDICARE, OTHER, SELFPAY ==
[2024-10-19 13:33] LABS: % Basophils 0.2 % (0-2); % Eosinophils 0.5 % (0-6); % Immature Granulocytes 2.6 % (0-0.5); % Lymphocytes 23.5 % (20.5-51.1); % Monocytes 5.5 % (1.7-9.3); % Neutrophils 67.7 % (42.2-75.2); Absolute Eosinophils 0.1 10^3/uL (0-0.7); Absolute Immature Granulocytes 0.4 10^3/uL (0-0.05); Absolute Lymphocytes 3.9 10^3/uL (1.2-3.4); Absolute Monocytes 0.9 10^3/uL (0.1-0.6); Absolute Neutrophils 11.1 10^3/uL (1.4-6.5); Mean Corp Hgb Conc. 33.3 g/dL (33.0-37.0); Mean Corpuscular Hgb 28.9 pg (27.0-31.0); Mean Corpuscular Volume 86.6 fL (81.0-99.0); Mean Platelet Volume 9.8 fL (7.4-10.4); Nucleated Red Blood Cells % 0 %; Platelet Count 328 10^3/uL (130-400); Red Blood Cell Count 4.85 10^6/uL (4.20-5.40); Red Cell Dist. Width 14.4 % (11.5-14.5); White Blood Cell Count 16.4 10^3/uL (4.8-10.8)
[2024-10-19 13:56] LABS: ALT (SGPT) 54 U/L (0-35); AST (SGOT) 30 U/L (14-36); Albumin 3.9 g/dl (3.5-5.0); Alkaline Phosphatase 94 U/L (38-126); Blood Urea Nitrogen 27 mg/dl (7-17); Calcium 9.1 mg/dl (8.4-10.2); Carbon Dioxide 26 mmol/L (22-30); Chloride 111 mmol/L (98-107); Glucose 97 mg/dl (70-99); Potassium 3.5 mmol/L (3.5-5.1); Sodium 143 mmol/L (135-145); Total Bilirubin 0.5 mg/dl (0.2-1.3); Total Protein 6.3 g/dl (6.3-8.2); eGFR > 60.00
[2024-10-19 14:01] LABS: Procalcitonin < 0.05 ng/ml (0.0-0.25)
[2024-10-19 14:26] LABS: Erythrocyte Sed Rate 7 mm/hour (0-20)
== END ==
LOC: RAD 12:40
PROVIDERS: ATTENDING PHYSICIAN Internal Medicine Geriatric Medicine
DX: J45.20 Mild intermittent asthma, uncomplicated (principal); J45.40 Moderate persistent asthma, uncomplicated; J18.9 Pneumonia, unspecified organism; Z09 Encounter for follow-up examination after completed treatment for conditions other than malignant neoplasm; E78.2 Mixed hyperlipidemia; M79.10 Myalgia, unspecified site; M54.12 Radiculopathy, cervical region; F32.9 Major depressive disorder, single episode, unspecified; K21.9 Gastro-esophageal reflux disease without esophagitis; M19.91 Primary osteoarthritis, unspecified site; Z13.89 Encounter for screening for other disorder; M62.81 Muscle weakness (generalized)
CPT/HCPCS: 36415; 71046; 80053; 84145; 85025; 85652; 86140

== ENCOUNTER → 2025-01-26 12:01 | Outpatient (REF) | payer MEDICARE, OTHER, SELFPAY ==
[2025-01-26 13:54] LABS: FSH 65.4 mIU/ml
[2025-01-26 18:21] LABS: Cortisol, Random 5.4 ug/dl
== END ==
LOC: REG 12:01
PROVIDERS: ATTENDING PHYSICIAN Internal Medicine Geriatric Medicine
DX: N95.1 Menopausal and female climacteric states (principal); E78.2 Mixed hyperlipidemia
CPT/HCPCS: 36415; 82533; 82670; 83001; 83002; 84146; 84403

== ENCOUNTER → 2025-01-27 08:48 | Outpatient (REF) | payer MEDICARE, OTHER, SELFPAY ==
[2025-01-27 09:48] LABS: Hematocrit 42.7 % (37.0-47.0); Hemoglobin 14.3 g/dL (12.0-16.0); Mean Corp Hgb Conc. 33.5 g/dL (33.0-37.0); Mean Corpuscular Volume 87.5 fL (81.0-99.0); Nucleated Red Blood Cells % 0 %; Platelet Count 285 10^3/uL (130-400); Red Cell Dist. Width 13.2 % (11.5-14.5)
[2025-01-27 09:51] LABS: INR 0.96; PT 13.1 Sec (11.4-14.6)
[2025-01-27 09:55] LABS: ALT (SGPT) 20 U/L (0-35); AST (SGOT) 22 U/L (14-36); Albumin 4.4 g/dl (3.5-5.0); Alkaline Phosphatase 83 U/L (38-126); Blood Urea Nitrogen 22 mg/dl (7-17); Calcium 9.5 mg/dl (8.4-10.2); Carbon Dioxide 25 mmol/L (22-30); Chloride 110 mmol/L (98-107); Glucose 107 mg/dl (70-99); Magnesium 2.2 mg/dl (1.6-2.3); Potassium 4.1 mmol/L (3.5-5.1); Sodium 141 mmol/L (135-145); Total Protein 6.8 g/dl (6.3-8.2); eGFR 58.61
== END ==
LOC: SDSPAT 08:48
PROVIDERS: ATTENDING PHYSICIAN Internal Medicine Cardiovascular Disease; FAMILY PHYSICIAN Internal Medicine Geriatric Medicine
DX: I48.91 Unspecified atrial fibrillation (principal)
CPT/HCPCS: 36415; 80053; 83735; 85025; 85610; 86850; 86900; 86901; 93005

== ENCOUNTER → 2025-01-28 09:12 | Outpatient (REF) | payer MEDICARE, OTHER, SELFPAY | LOC: WDC 09:12 | PROVIDERS: ATTENDING PHYSICIAN Student in an Organized Health Care Education/Training Program; FAMILY PHYSICIAN Internal Medicine Geriatric Medicine | DX: Z12.31 Encounter for screening mammogram for malignant neoplasm of breast (principal) | CPT/HCPCS: 77063; 77067 ==

== ENCOUNTER 2025-02-22 05:56 | Day surgery (SDC) | payer MEDICARE, OTHER, SELFPAY ==
[2025-01-27 09:07] VITALS: BMI 29.5
[2025-02-22] VITALS (11 sets, daily range): BP systolic 112–127; BP diastolic 64–86; BMI 29.3
--- NOTE | 2025-02-22 06:55 | PTCARENOTE ---
Unsuccessful obtaining IV after 2 tries, VAT nurse selvin texted
[2025-02-22 08:30] LABS: ACT-LR - POC 350 Seconds (116-155)
--- NOTE | 2025-02-22 08:57 | ITS.CL.ABL ---
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
Ablation
Procedure Report:
ELECTROPHYSIOLOGY ABLATION STUDY
DATE:: February 22, 2025�����������������������������REFERRING: Dr. Edward Rowley
INDICATION: Paroxysmal supraventricular tachycardia in the form of atrial fibrillation.��As above
HISTORY: See H and P.��As above
ANTIARRHYTHMIC DRUG: Diltiazem
PRE-PROCEDURE JONATHAN: No atrial thrombus
PRESENTING RHYTHM: Sinus bradycardia
'TIME-OUT':��called and confirmed.
SEDATION/ANESTHESIA:��provided via the anesthesia department using general anesthesia (LMA).
INTRAVENOUS/ARTERIAL ACCESS:
Right femoral venous -8Fr
Left femoral venous - 8 Fr, the patient was quite underfilled and we infused 750 cc of saline prior to left femoral venous access. 1 single 8 Sinhala sheath was utilized in the left femoral vein.
Ljqors-qr-clhlg suture bilaterally
Ultrasound guidance for bilateral femoral vein access was utilized by me to obtain access with demonstration of normal anatomy
CHADS-VASC Score:
HAS-Bled Score
PROCEDURE:
1.��A decapolar CS catheter was placed within the CS for mapping and pacing.��This was also used as the reference catheter for the 3-D map.
2. The intracardiac ultrasound catheter was positioned in the RA to identify the FO for targeting of transseptal puncture, assist��in identification of the pulmonary vein ostia, monitoring pre and post ablation pulmonary vein flow velocities,
monitoring for 'bubble' formation during RF application as a sign of thermal injury,��and to monitor for pericardial effusion during mapping and ablation procedure.���Left atrial size, LV ejection fraction, and pulmonary vein flows were monitored
pre and post ablation procedure. The other valves were inspected and found to be free of significant regurgitation or stenosis.
3.��Half of the calculated heparin bolus was administered prior to the first transeptal puncture.��Transseptal puncture was performed to diagnose RA and LA pressure so that safety of LA mapping and ablation could be further assessed, and to access
the left atrium and pulmonary veins for mapping and ablation.��This entailed advancing an 16.8 Sinhala RF wire, sheath with dilator into the superior vena cava and withdrawing both (monitoring intracardiac ultrasound, fluoroscopy and tip pressure)
with the tip oriented toward the atrial septum.��The fossa ovalis was engaged (indicated by sudden displacement of the sheath tip as well as tenting of the fossa seen on intracardiac ultrasound).��Left atrial access required a pass with the
Brockenbrough needle extended.��Left atrial catheter position was confirmed by pressure monitoring (RA mean pressure 2 mm Hg and LA mean presure 7 mm Hg which was answered with 1 L of saline infusion and an left atrial pressure of 12 mmHg), LA
saturation (99%),��as well as fluoroscopy.��The sheath was advanced over the dilator and positioned in the left atrium.��The remainder of the calculated heparin bolus was administered and heparin was
infused to maintain ACT at 300 -350 seconds throughout the case.
4.��RA pacing was performed via the proximal decapolar poles and LA pacing was performed via the distal decapolr poles.
5. A quadrapolar catheter was first positioned at the His position for His Bundle recording which was tagged via the 3-D Navex sytem, and then passed to the RVA for RV pacing and recording.
6. The Penta spline and grid catheter were placed in each of the LIPV, LSPV, RSPV and the RIPV.��
7.��Next, a 3-D map was created using Navex.���A 3-D reconstructed CT image was compared to the 3-D Navex map to assist in anatomic interpretation, mapping and ablation.��The CT image and the NavX image were fused.
8. A total of 50 lesions were given in all of basket and flower poses. All of in basket poses were given to each of the 4 pulmonary veins rendering entrance and exit block. Flower pose to the roof posterior wall and floor left atrium rendered the
posterior wall electrically silent. EP study post ablation did not demonstrate any other nonpulmonary vein triggers or supraventricular mechanisms of arrhythmia. Normal sinus node and AV node function noted.
9. 35 mg of protamine was given at the end the procedure. Sjqlkv-sh-lhvtx suture to bilateral femoral venous sites after procedure.
TOTAL FLOURO TIME: 11 minutes 120 mGy
TOTAL RF DURATION: 0 minutes
REVERSAL OF HEPARIN: 35 mg of protamine, slow IV administration
COMPLICATIONS:
None
Intracardiac US shows no pericardial effusion post ablation.
SUMMARY:��
Complex left atrial mapping and ablation.
Isolation of all 4 pulmonary veins as well as the roof posterior wall floor of the left atrium.
RECOMMENDATIONS:
1. Ambulate in 4 hours
2. Resume anticoagulation
3.��Consider same-day discharge
4.��Continue diltiazem
Copy to: JEFRY Mckenzie
[2025-02-22] MEDS: ANESTHETIC LOZENGE 1 LOZENGE PO (09:58)
[2025-02-22] MEDS: TYLENOL 650 MG PO (10:42)
--- NOTE | 2025-02-22 13:16 | W.PN.UPDATE ---
Update Note
Progress Note Update
Pt seen post PFA. Bilat groin sites without ht/bleeding, non tender. Post EKG NSR 90s, no acute changes. Resume eliquis tonight at usual time. Followup wtih Dr. Castañeda as scheduled. Home today if groin sites/tele remain stable.
== END 2025-02-22 14:00 | disposition home or self-care (01) ==
LOC: CATH 05:56
PROVIDERS: ATTENDING PHYSICIAN Internal Medicine Cardiovascular Disease; FAMILY PHYSICIAN Internal Medicine Geriatric Medicine
DX: I48.0 Paroxysmal atrial fibrillation (principal); I47.10 Supraventricular tachycardia, unspecified; E78.5 Hyperlipidemia, unspecified; F32.A Depression, unspecified; F41.9 Anxiety disorder, unspecified; G25.81 Restless legs syndrome; G47.00 Insomnia, unspecified; G47.33 Obstructive sleep apnea (adult) (pediatric); I48.92 Unspecified atrial flutter; J45.909 Unspecified asthma, uncomplicated; K58.9 Irritable bowel syndrome, unspecified; M79.7 Fibromyalgia; Z79.01 Long term (current) use of anticoagulants; Z79.899 Other long term (current) drug therapy; Z86.0100 Personal history of colon polyps, unspecified; Z86.711 Personal history of pulmonary embolism; Z90.89 Acquired absence of other organs; Z91.030 Bee allergy status; Z90.49 Acquired absence of other specified parts of digestive tract; Z87.19 Personal history of other diseases of the digestive system; Z91.51 Personal history of suicidal behavior; Z98.51 Tubal ligation status
CPT/HCPCS: C1732; C1894; C1730; C1769; C1892; C1759; 85347; 93005; 93656; 93657; C1733; C1766